=== PATIENT | female | born 1990 | race Hispanic/Latino ===

== ENCOUNTER 2017-12-06 16:10 | Inpatient (IN) | payer OTHER ==
[2017-12-06 16:59] VITALS: BMI 60.0
--- NOTE | 2017-12-06 18:33 | ULT ---
BIOPHYSICAL PROFILE 12/06/17 HISTORY: Decreased movement in a female. TECHNIQUE: Multiplanar suresh scale and color doppler images were obtained in a transabdominal limited ultra sound. FINDINGS: ESTRELLITA is 2.9 cm, which is low. A heart rate was detected at 137 beats per minute. A biophysical profile was performed. The patient scored 6 out of 8 with 0 for amniotic fluid volume. IMPRESSION: 1. Live intrauterine . 2. Oligohydramnios. 3. Biophysical profile of 6 out of 8. POS: [facility]
--- NOTE | 2017-12-06 18:48 | PDOC.LDHP ---
Labor and Delivery H&P Chief complaint: decreased movement HPI: Marta Ireland is a 27 year old female at 38.5 weeks by 6.3 wk sono, MEL of 12/15/17, who presented to L&D for decreased movement for the last day. States that she has no been feeling contractions but she has felt occasional pains over the last few days. She denies any loss of fluid, vaginal bleeding, vaginal discharge. She has no other complaints. Current gestational age (weeks): 38 (38.5) Due date: 12/15/17 Dating criteria: first trimester ultrasound (6.3 wk sono) Grav: 1 Para: 0 Current complications: other (Late to care, morbid obesity, hx of marijuana and tobacco abuse) Abnormal US findings: No Current medications: pre-matilda vitamins Social history: tobacco use (tobacco use early in ), drug use ( marijuana use in ) - Physical Exam Vital signs reviewed and normal: yes General: NAD, resting Heart: RRR Lungs: CTAB Abdomen: gravid Extremeties: no edema FHT: category 1 - OB Labs Blood type: O RH: positive Antibody Screen: negative HIV: negative RPR: negative HEPSAg: negative 1 hour GCT: negative (99) GBS: positive Urine drug screen: positive (marijuana) Rubella: immune - Assessment (1) sIUP (2) Oligohydramnios (3) Late to Care (4) Maternal marijuana and tobacco use in (5) Morbid Obesity - Plan Plan: admit to L&D, labor augmentation if indicated -: 27 year old at 38.5 wks based on 6.3 wk sono presents for decreased FM. Oligohydramnios discovered on BPP today. (1) sIUP: - Admit to L&D for induction of labor for oligohydramnios - 6 on BPP, 0 for amniotic fluid - Check amnisure - Will check cervix afterwards to decide between balloon and cytotec (2) Oligohydramnios - Denied any LOF - ESTRELLITA of 2.7 on BPP today - See above (3) GBS+ - Will start prophylatic PNC once we start induction (3) Morbid Obesity - Prepregnancy weight about 405 lb - At least a 30 lb weight gain in (4) Late to Care (5) Maternal hx of marijuana and tobacco abuse <Shaka Aaron - Last Filed: 12/06/17 21:39> <Gini Figueroa - Last Filed: 12/07/17 01:06> Allergies/Adverse Reactions: Allergies Allergy/AdvReac Type Severity Reaction Status Date / Time No Known Allergies Allergy Verified 12/06/17 17:00 Attending Addendum - Attending Addendum Date/Time: 12/06/17 1900 I personally evaluated the patient and discussed the management with Dr. Aaron I agree with the History, Examination, Assessment and Plan documented above with any addition or exceptions noted below. 27 yo female at 38.5 wks by 6.3 wk sono admitted for IOL due to oligo at term. +FM since arrival. No evidence of LOF. Amnisure negative. Will send placenta to path. Has been monitored this throughout. Reassuring status. Cat 1. Will start induction with miso. Repeat exam in 4 hours. Would like epidural for pain control when needed. ABrayMD <Gini Figueroa - Last Filed: 12/07/17 01:06>
[2017-12-06] MEDS ORDERED: Promethazine HCl 25 MG/ML VIAL IM PRN (18:58)
[2017-12-06] MEDS ORDERED: Lidocaine 1% (PF) 30 ML VIAL SC PRN (18:58)
[2017-12-06] MEDS ORDERED: NS / Oxytocin 40 units/1000ml 1,000 ML IV PRN (18:58)
[2017-12-06] MEDS ORDERED: Ibuprofen 800 MG TAB PO PRN (18:58)
[2017-12-06] MEDS ORDERED: Ondansetron HCl/PF 4 MG/2 ML Vial IVP PRN (18:58)
[2017-12-06] MEDS ORDERED: Acetaminophen 500 MG TAB PO PRN (18:58)
[2017-12-06 20:30] LABS: Amnisure Test No Membranes Rupture (No Rupture)
[2017-12-06 20:31] LABS: Amnisure Internal Control QC ACCEPTABLE (ACCEPTABLE)
[2017-12-06] MEDS ORDERED: Misoprostol 100 MCG TAB ONE (20:56)
[2017-12-06] MEDS: Lactated Ringer's 1,000 ML IV SCH (21:04)
[2017-12-06 21:23] LABS: Hemoglobin 12.6 g/dL (12.0-16.0); Mean Corpuscular HGB CONC 34.6 g/dL (32.0-36.0); Mean Corpuscular Hemoglobin 31.5 pg (27.0-31.0); Mean Platelet Volume 9.6 fL (7.4-10.4); Platelet Count 234 thou/uL (130-400); RBC Distribution Width 12.1 % (11.5-14.5); Red Blood Cell (RBC) Count 3.99 mill/uL (4.20-5.40); White Blood Cell (WBC) Count 10.7 thou/uL (4.8-10.8)
[2017-12-06] MEDS: Misoprostol 100 MCG TAB VAG SCH (21:31)
--- NOTE | 2017-12-06 21:42 | PDOC.LDPN ---
Labor & Delivery Progress Note - Subjective Subjective: comfortable - Objective Vital signs reviewed and normal: yes General: NAD, resting Uterine fundus: non tender SVE: [place] Dilation: 1.5 Effacement: 25% Station: -3 FHT: category 1 (140 baseline, mod cezar, accels present, no decels) [place] contractions every: none Procedures: cytotec placement Resuscitative measures: maternal IV fluids (maintenance LR) - Assessment (1) Intrauterine Code(s): Z34.90 - ENCNTR FOR SUPRVSN OF NORMAL , UNSP, UNSP TRIMESTER Current Visit: Yes Status: Acute (2) Oligohydramnios Code(s): O41.00X0 - OLIGOHYDRAMNIOS, UNSP TRIMESTER, NOT APPLICABLE OR UNSP Current Visit: Yes Status: Acute (3) Group B streptococcal carriage complicating Code(s): O99.820 - STREPTOCOCCUS B CARRIER STATE COMPLICATING Current Visit: Yes Status: Acute (4) Morbid obesity Code(s): E66.01 - MORBID (SEVERE) OBESITY DUE TO EXCESS CALORIES Current Visit : Yes Status: Chronic (5) Marijuana abuse Code(s): F12.10 - CANNABIS ABUSE, UNCOMPLICATED Current Visit: Yes Status: Chronic (6) Tobacco abuse Code(s): Z72.0 - TOBACCO USE Current Visit: Yes Status: Chronic (7) Late care Code(s): O09.30 - SUPRVSN OF PREG W INSUFFICIENT ANTENAT CARE, UNSP TRIMESTER Current Visit: Yes Status: Chronic Plan: continue plan of care, labor augmentation (cytotec placement at 2129) -: 27 year old F at 38.5 wks by 6.3 wk sono (1) sIUP: - induction indicated for oligohydramnios diagnosed on BPP today - Initial check @ 2124 was 1.5 / 20 / -3 - Cytotec placed at 2129 - Will reevaluate in 4 hours (2) Oligohydramnios - ESTRELLITA of 2.7 on BPP today - Normal US during this - FHTs reassuring, Cat I strip- baseline 140, mod cezar, accels present, no decels - No contractions - See above (3) GBS +: - Will start treating with PNC likely after check in 4 hours (4) Morbid obesity (5) Late to care (6) Substance abuse in , marijuana and tobacco - Pending UDS <Shaka Aaron - Last Filed: 12/06/17 21:47> Attending Addendum - Attending Addendum Date/Time: 12/07/17 0107 I personally evaluated the patient and discussed the management with Dr. Aaron I agree with the History, Examination, Assessment and Plan documented above with any addition or exceptions noted below. Miso placed without difficulty. Will hold on PCN for GBS until ROM or noted change on exam. ABrayMD <Gini Figueroa - Last Filed: 12/07/17 01:07>
[2017-12-06 22:04] LABS: Syphilis Antibody Nonreactive (Nonreactive); Syphilis Antibody Index 0.05 S/CO (<1.00 Non-Reactive)
[2017-12-06 23:05] LABS: Amphetamine Not Detected (NotDetected); Barbiturates Screen Not Detected (NotDetected); Benzodiazepine Screen Not Detected (NotDetected); Cocaine Metabolite Screen Not Detected (NotDetected); Medtox Control Line Valid? VALID (VALID); Medtox Reader # READER 1; Methadone Not Detected (NotDetected); Methamphetamine Not Detected (NotDetected); Opiate Screen Not Detected (NotDetected); Oxycodone Screen Not Detected (NotDetected); Phencyclidine (PCP) Not Detected (NotDetected); THC/Cannabinoid Screen Not Detected (NotDetected); Tricyclic Screen Not Detected (NotDetected)
[2017-12-07] MEDS: Misoprostol 100 MCG TAB VAG SCH ×3 (01:03→22:02)
[2017-12-07] MEDS: Penicillin G 2.5 MILL.units 2.5 MILL.UNITS in Premix Bag 1 BAG IVPB SCH ×6 (01:12→21:19)
[2017-12-07 01:39] LABS: HBSAg Index 0.22 S/CO (0-0.99); Hep B Surf Ag Non-Reactive S/CO (NonReactive)
--- NOTE | 2017-12-07 01:59 | PDOC.LDPN ---
Labor & Delivery Progress Note - Subjective Subjective: comfortable - Objective Vital signs reviewed and normal: yes General: NAD, resting Uterine fundus: non tender SVE: Fiona TARANGO Dilation: 1.5 Effacement: 25% Station: -2 FHT: category 1 [place] contractions every: none Procedures: 2nd cytotec - Assessment (1) Intrauterine Code(s): Z34.90 - ENCNTR FOR SUPRVSN OF NORMAL , UNSP, UNSP TRIMESTER Current Visit: Yes Status: Acute (2) Oligohydramnios Code(s): O41.00X0 - OLIGOHYDRAMNIOS, UNSP TRIMESTER, NOT APPLICABLE OR UNSP Current Visit: Yes Status: Acute (3) Group B streptococcal carriage complicating Code(s): O99.820 - STREPTOCOCCUS B CARRIER STATE COMPLICATING Current Visit: Yes Status: Acute (4) Morbid obesity Code(s): E66.01 - MORBID (SEVERE) OBESITY DUE TO EXCESS CALORIES Current Visit : Yes Status: Chronic (5) Marijuana abuse Code(s): F12.10 - CANNABIS ABUSE, UNCOMPLICATED Current Visit: Yes Status: Chronic (6) Tobacco abuse Code(s): Z72.0 - TOBACCO USE Current Visit: Yes Status: Chronic (7) Late care Code(s): O09.30 - SUPRVSN OF PREG W INSUFFICIENT ANTENAT CARE, UNSP TRIMESTER Current Visit: Yes Status: Chronic Plan: continue plan of care, labor augmentation (2nd cytotec placement at 0100) -: 27 year old F at 38.5 wks by 6.3 wk sono (1) sIUP: - induction indicated for oligohydramnios diagnosed on BPP today - Initial check @ 2124 was 1.5 / 20 / -3 - Cytotec placed at 2130 - Will reevaluate in 4 hours 2nd check at approximately 0100 was unchanged -2nd cytotec placed at that time (2) Oligohydramnios - ESTRELLITA of 2.7 on BPP today - Normal US during this - FHTs reassuring, Cat I strip- baseline 140, mod cezar, accels present, no decels - No contractions - See above (3) GBS +: - Will start treating with PNC once patient has started to progress more into latent labor (4) Morbid obesity (5) Late to care (6) Substance abuse in , marijuana and tobacco - UDA negative <Shaka Aaron - Last Filed: 12/07/17 01:59> Attending Addendum - Attending Addendum Date/Time: 12/07/17 0800 I personally evaluated the patient and discussed the management with Dr. Aaron I agree with the History, Examination, Assessment and Plan documented above with any addition or exceptions noted below. Continue current care. Will place 2nd miso. ABrayMD <Gini Figueroa - Last Filed: 12/07/17 19:46>
[2017-12-07] MEDS: Lactated Ringer's 1,000 ML IV SCH ×3 (04:05→22:01)
[2017-12-07] MEDS ORDERED: Misoprostol 100 MCG TAB VAG SCH (06:00)
--- NOTE | 2017-12-07 06:10 | PDOC.LDPN ---
Labor & Delivery Progress Note - Subjective Subjective: comfortable - Objective Vital signs reviewed and normal: yes General: NAD, resting Uterine fundus: tender to palpation SVE: Fiona TARANGO Dilation: 1.5 Effacement: 25% Station: -2 FHT: category 1 (baseline 135, mod cezar, accels present, no decels ) [place] contractions every: none - Assessment (1) Intrauterine Code(s): Z34.90 - ENCNTR FOR SUPRVSN OF NORMAL , UNSP, UNSP TRIMESTER Current Visit: Yes Status: Acute (2) Oligohydramnios Code(s): O41.00X0 - OLIGOHYDRAMNIOS, UNSP TRIMESTER, NOT APPLICABLE OR UNSP Current Visit: Yes Status: Acute (3) Group B streptococcal carriage complicating Code(s): O99.820 - STREPTOCOCCUS B CARRIER STATE COMPLICATING Current Visit: Yes Status: Acute (4) Morbid obesity Code(s): E66.01 - MORBID (SEVERE) OBESITY DUE TO EXCESS CALORIES Current Visit : Yes Status: Chronic (5) Marijuana abuse Code(s): F12.10 - CANNABIS ABUSE, UNCOMPLICATED Current Visit: Yes Status: Chronic (6) Tobacco abuse Code(s): Z72.0 - TOBACCO USE Current Visit: Yes Status: Chronic (7) Late care Code(s): O09.30 - SUPRVSN OF PREG W INSUFFICIENT ANTENAT CARE, UNSP TRIMESTER Current Visit: Yes Status: Chronic Plan: continue plan of care, labor augmentation (3rd cytotec placement) -: (1) sIUP: - induction indicated for oligohydramnios diagnosed on BPP today - Initial check @ 2124 was 1.5 / / 3 - Cytotec placed at 2130 - Will reevaluate in 4 hours 3nd check at approximately 0515 -3rd cytotec, this time 50 mg, placed at 0550 (2) Oligohydramnios - ESTRELLITA of 2.7 on BPP today - Normal US during this - FHTs reassuring, Cat I strip- baseline 140, mod cezar, accels present, no decels - No contractions - See above (3) GBS +: - Will start treating with PNC once patient has started to progress more into latent labor (4) Morbid obesity (5) Late to care (6) Substance abuse in , marijuana and tobacco - UDA negative <Galen,Shaka - Last Filed: 12/07/17 06:10> Attending Addendum - Attending Addendum Date/Time: 12/07/17 0820 I personally evaluated the patient and discussed the management with Dr. Aaron I agree with the History, Examination, Assessment and Plan documented above with any addition or exceptions noted below. Will place miso 50 mcg. Consider balloon if no change on followup exam. ABrayMD <Gini Figueroa - Last Filed: 12/07/17 19:50>
[2017-12-07] MEDS: Penicillin G Potassium 5 MILL.UNITS in Sodium Chloride 0.9% 100 ML IVPB SCH ×2 (07:07→11:35)
--- NOTE | 2017-12-07 11:00 | PDOC.LDPN ---
Labor & Delivery Progress Note - Subjective Subjective: comfortable, no concerns, other (Placement of balloon discussed with patient who agrees to proceed.) - Objective Vital signs reviewed and normal: yes General: NAD, resting Uterine fundus: non tender Dilation: 1cm Effacement: 50% Station: -2 FHT: category 1 [place] contractions every: occasional Procedures: Cook Balloon placement - Assessment (1) Intrauterine Code(s): Z34.90 - ENCNTR FOR SUPRVSN OF NORMAL , UNSP, UNSP TRIMESTER Current Visit: Yes Status: Acute (2) Oligohydramnios Code(s): O41.00X0 - OLIGOHYDRAMNIOS, UNSP TRIMESTER, NOT APPLICABLE OR UNSP Current Visit: Yes Status: Acute (3) Group B streptococcal carriage complicating Code(s): O99.820 - STREPTOCOCCUS B CARRIER STATE COMPLICATING Current Visit: Yes Status: Acute (4) Late care Code(s): O09.30 - SUPRVSN OF PREG W INSUFFICIENT ANTENAT CARE, UNSP TRIMESTER Current Visit: Yes Status: Chronic (5) Marijuana abuse Code(s): F12.10 - CANNABIS ABUSE, UNCOMPLICATED Current Visit: Yes Status: Chronic (6) Morbid obesity Code(s): E66.01 - MORBID (SEVERE) OBESITY DUE TO EXCESS CALORIES Current Visit : Yes Status: Chronic (7) Tobacco abuse Code(s): Z72.0 - TOBACCO USE Current Visit: Yes Status: Chronic -: 27 yo G1 @ 38.6 by 6.3 wk US w/: 1) SIUP -undergoing IOL for oligohydramnios -s/p cytotec placement x 3 with no cervical change -transcervical balloon placed this morning -plan to start pitocin if FHTs remain reassuring 2) Oligohydramnios -ESTRELLITA of 2.7 on admission BPP -Normal US this with FHTs and remainder of BPP reassuring 3) GBS(+) -will start PCN once labor established (4) Substance abuse in -UDS negative <Rell Calero - Last Filed: 12/07/17 11:04> Attending Addendum - Attending Addendum Date/Time: 12/07/172011 I personally evaluated the patient and discussed the management with Dr. Calero I agree with the History, Examination, Assessment and Plan documented above with any addition or exceptions noted below- IUP@ 38.5 weeks undergoing induction for oligohydramnios- Successful placement of Cooks ballloon; will start low dose of pitocin to aid with induction. Category 1 FHTs. <Bethany Downing - Last Filed: 12/07/17 20:14>
[2017-12-07] MEDS: NS w/ Oxytocin 10 units 500 ML IV SCH (11:33)
[2017-12-07] MEDS: Butorphanol Tartrate 1 MG/ML VIAL ONE ×2 (12:17→13:59)
[2017-12-07] MEDS ORDERED: Butorphanol Tartrate 1 MG/ML VIAL SLOW IVP PRN ×2 (13:55→14:21)
[2017-12-07] MEDS ORDERED: Butorphanol Tartrate 1 MG/ML VIAL ONE (13:56)
--- NOTE | 2017-12-07 15:21 | PDOC.LDPN ---
Labor & Delivery Progress Note - Subjective Subjective: comfortable (27 yo G1 @ 38.6 by 6.3 wk US ) - Objective Vital signs reviewed and normal: yes General: NAD SVE: unable to assess; balloon in place securely FHT: category 1 [place] contractions every: irregularly mahesh -: 27 yo G1 @ 38.6 by 6.3 wk US w/: 1) SIUP -undergoing IOL for oligohydramnios -s/p cytotec placement x 3 with no cervical change -transcervical balloon placed this morning -pitocin started at 1100 -balloon still securely in place and pitocin at 6 -unable to keep baby on the monitor for extended periods of time unless the pt is on her back, but she feels extreme pain on her back - @ 1430 baby was on the monitor for about 20-30 minutes showing a category 1 strip. -unable to assess dilation -continue balloon until ~2300 -continue pitocin 2) Oligohydramnios -ESTRELLITA of 2.7 on admission BPP -Normal US this with FHTs and remainder of BPP reassuring 3) GBS(+) -will start PCN once labor established (4) Substance abuse in -UDS on admission
--- NOTE | 2017-12-07 19:53 | PDOC.LDPN ---
Labor & Delivery Progress Note - Subjective Subjective: comfortable, vaginal pressure - Objective Vital signs reviewed and normal: yes General: NAD, resting Uterine fundus: non tender Dilation: 5 Effacement: 75% Station: -1 FHT: category 1 [place] contractions every: 4 minutes Procedures: AROM at 19:13, IUPC and FSE placed. AROM: clear fluid IUPC placed: yes FSE placed: yes - Assessment (1) Oligohydramnios Code(s): O41.00X0 - OLIGOHYDRAMNIOS, UNSP TRIMESTER, NOT APPLICABLE OR UNSP Current Visit: Yes Status: Acute (2) Group B streptococcal carriage complicating Code(s): O99.820 - STREPTOCOCCUS B CARRIER STATE COMPLICATING Current Visit: Yes Status: Acute (3) Morbid obesity Code(s): E66.01 - MORBID (SEVERE) OBESITY DUE TO EXCESS CALORIES Current Visit : Yes Status: Chronic Plan: continue plan of care, pitocin for augmentation -: 27 yo female at 38.6 wks by 6.3 wk sono admitted for IOL due to oligo at term. IOL for oligo: Now s/p miso x3 and Cooks balloon. Doing well. FHT cat 1. AROM at 1913 with clear fluid. Internal monitoring place. Titrate pitocin per protocol Repeat exam prn or in 2 to 4 hours. GBS pos: On PCN. Now s/p 2 doses. Morbid Obesity: Risk discussed. Rosi
[2017-12-07] MEDS: Bupivacaine 0.5% 20 ML, fentaNYL Citrate/PF 400 MCG in Sodium Chloride 0.9% 72 ML EPIDURAL SCH (21:40)
[2017-12-07] MEDS ORDERED: DISCONTINUE ALL PREVIOUS NARCOTICS FS SCH (21:45)
[2017-12-07] MEDS ORDERED: Bupivacaine 0.5% 10 ML VIAL ONE (21:48)
[2017-12-07] MEDS ORDERED: Fentanyl 100 MCG/2 ML VIAL ONE (21:48)
[2017-12-07] MEDS ORDERED: ePHEDrine/0.9% NaCl/PF SYRINGE 50 mg/10 ml SLOW IVP PRN (22:57)
[2017-12-07] MEDS ORDERED: Fentanyl 100 MCG/2 ML VIAL EPIDURAL ONE (22:57)
[2017-12-07] MEDS ORDERED: Ondansetron HCl/PF 4 MG/2 ML Vial IVP PRN (22:57)
[2017-12-07] MEDS ORDERED: Naloxone HCl 0.4 mg/ml Vial IVP PRN ×2 (22:57)
[2017-12-07] MEDS ORDERED: Eucerin (Mineral Oil/Petrolatum,White) 30 gm Jar TOP PRN (22:57)
[2017-12-07] MEDS ORDERED: Promethazine HCl 25 MG/ML VIAL IM PRN (22:57)
[2017-12-07] MEDS ORDERED: diphenhydrAMINE 50 MG/ML VIAL IVP PRN (22:57)
[2017-12-07] MEDS ORDERED: Acetaminophen 325 MG TAB PO PRN (22:57)
[2017-12-07] MEDS ORDERED: Lactated Ringer's 500 ML IV PRN (22:57)
[2017-12-07] MEDS ORDERED: Fentanyl 4mcg/Marcaine 0.1% Cassette 100 ML EPIDURAL SCH (23:00)
[2017-12-07] MEDS ORDERED: Communication Order-Pharmacy FS SCH (23:00)
--- NOTE | 2017-12-08 00:14 | PDOC.LDPN ---
Labor & Delivery Progress Note - Subjective Subjective: comfortable - Objective Vital signs reviewed and normal: yes General: NAD, resting Uterine fundus: non tender SVE: Sharron Dilation: 6 Effacement: 75% Station: -1 FHT: category 1 (120 baseline, mod cezar, accels present, no decels ) [place] contractions every: 2-3 min AROM: clear fluid (at 1914) IUPC placed: yes (1714) FSE placed: yes (1714) - Assessment (1) Intrauterine Code(s): Z34.90 - ENCNTR FOR SUPRVSN OF NORMAL , UNSP, UNSP TRIMESTER Current Visit: Yes Status: Acute (2) Oligohydramnios Code(s): O41.00X0 - OLIGOHYDRAMNIOS, UNSP TRIMESTER, NOT APPLICABLE OR UNSP Current Visit: Yes Status: Acute (3) Group B streptococcal carriage complicating Code(s): O99.820 - STREPTOCOCCUS B CARRIER STATE COMPLICATING Current Visit: Yes Status: Acute (4) Morbid obesity Code(s): E66.01 - MORBID (SEVERE) OBESITY DUE TO EXCESS CALORIES Current Visit : Yes Status: Chronic (5) Marijuana abuse Code(s): F12.10 - CANNABIS ABUSE, UNCOMPLICATED Current Visit: Yes Status: Chronic (6) Tobacco abuse Code(s): Z72.0 - TOBACCO USE Current Visit: Yes Status: Chronic (7) Late care Code(s): O09.30 - SUPRVSN OF PREG W INSUFFICIENT ANTENAT CARE, UNSP TRIMESTER Current Visit: Yes Status: Chronic Plan: continue plan of care, pitocin for augmentation (currently at 6) -: 27 yo female at 38.6 wks by 6.3 wk sono admitted for IOL due to oligo at term. IOL for oligo: Now s/p miso x3 and Cooks balloon. Doing well. FHT cat 1. AROM at 191 with clear fluid. Internal monitoring place. Titrate pitocin per protocol Repeat exam prn or in 2 to 4 hours. 2314 check was essentially unchanged. Will recheck in 2 hours. GBS pos: On PCN. Now s/p 2 doses. Morbid Obesity: Risk discussed. <Shaka Aaron - Last Filed: 12/08/17 00:12> - Assessment (1) Oligohydramnios Code(s): O41.00X0 - OLIGOHYDRAMNIOS, UNSP TRIMESTER, NOT APPLICABLE OR UNSP Current Visit: Yes Status: Acute (2) Group B streptococcal carriage complicating Code(s): O99.820 - STREPTOCOCCUS B CARRIER STATE COMPLICATING Current Visit: Yes Status: Acute (3) Morbid obesity Code(s): E66.01 - MORBID (SEVERE) OBESITY DUE TO EXCESS CALORIES Current Visit : Yes Status: Chronic <Gini Figueroa - Last Filed: 12/08/17 02:59> Attending Addendum - Attending Addendum Date/Time: 12/08/17 0257 I personally evaluated the patient and discussed the management with Dr. Aaron I agree with the History, Examination, Assessment and Plan documented above with any addition or exceptions noted below. Continue current management. Adjust pitocin as able per monitoring. Will repeat exam in 2 to 4 hours per tracing and status to help decrease risk for intraamniotic infection. Now s/p 3 PCN doses ABrayMD <Gini Figueroa - Last Filed: 12/08/17 02:59>
[2017-12-08] MEDS: Penicillin G 2.5 MILL.units 2.5 MILL.UNITS in Premix Bag 1 BAG IVPB SCH ×4 (01:02→15:49)
[2017-12-08] MEDS: Lactated Ringer's 1,000 ML IV SCH ×3 (01:26→21:26)
--- NOTE | 2017-12-08 03:03 | PDOC.LDPN ---
Labor & Delivery Progress Note - Subjective Subjective: comfortable - Objective Vital signs reviewed and normal: yes General: resting (epidural) Uterine fundus: non tender SVE: 6/75/-2 FHT: variable decelerations [place] contractions every: 5 mins Other exam findings: see comment below Procedures: FSE replaced. Resuscitative measures: maternal oxygen, maternal IV fluids, maternal position change, other (Pitocin stopped) - Assessment (1) Oligohydramnios Code(s): O41.00X0 - OLIGOHYDRAMNIOS, UNSP TRIMESTER, NOT APPLICABLE OR UNSP Current Visit: Yes Status: Acute Qualifiers: Fetus number: single or unspecified fetus (2) Group B streptococcal carriage complicating Code(s): O99.820 - STREPTOCOCCUS B CARRIER STATE COMPLICATING Current Visit: Yes Status: Acute (3) Morbid obesity Code(s): E66.01 - MORBID (SEVERE) OBESITY DUE TO EXCESS CALORIES Current Visit : Yes Status: Chronic Plan: continue plan of care, resuscitative measures -: 27 yo female at 38.6 wks by 6.3 wk sono admitted for IOL 2/2 oligo. Earlier, FSE was removed during patient position changes. Variable decels. FSE replaced. Pitocin stopped. Resuscitative measures. FHT reassuring after measures. Will hold pitocin for now until full recovery. s/p 4 doses of PCN Continue expectant management at this time. Will rest off pitocin for 1 hour. Rosi
[2017-12-08] MEDS: Bupivacaine 0.5% 20 ML, fentaNYL Citrate/PF 400 MCG in Sodium Chloride 0.9% 72 ML EPIDURAL SCH (05:52)
--- NOTE | 2017-12-08 09:01 | PDOC.LDPN ---
Labor & Delivery Progress Note - Subjective Subjective: comfortable - Objective Vital signs reviewed and normal: yes General: NAD SVE: 6/75%/-2 FHT: category 1 [place] contractions every: q4 min IUPC placed: yes FSE placed: yes -: A/P: 1) IUP@39 0/7 weeks induced for oligohydramnios. Slow labor progression- cervix unchanged since 10 pm last night. Contractions inadequate but patient has had intermittent Category 2 FHTs which has limited the titration of the pitocin. Discussed situation with patient and family with recommendation to proceed with due to arrest of active phase. Patient verbalizes understanding but desires continued trial of labor. Discussed risks of continuing with labor with patient. Continue to monitor closely and continue to discussing with patient.
[2017-12-08] MEDS ORDERED: CEFAZOLIN/Water 2 GM/20 ML SYRINGE ONE ×3 (09:55→10:13)
--- NOTE | 2017-12-08 09:55 | PDOC.EVN ---
Event Note - Event Note Event Note: Discussed case with Dr. Melton around 0900AM. Reviewed records and noted patient to have been at 6cm dilation since around 2127 last night (12/07), approximately 1 hr after AROM and IUPC placed. Patient has had intermittent periods of adequate contraction pattern overnight, but overall lack of change for >12 hrs at this point after onset of active labor indicates uterine inertia. In addition , the fetus was unable to tolerate higher rates of pitocin overnight. Given arrest of active labor, we discussed medical need for operative delivery with the patient. After some consideration, she has agreed to proceed. Per Dr. Melton's recommendations, we will give 3g of Ancef and 500mg azithromycin preoperatively, continue SCDs, and start prophylactic Lovenox dosing 12 hours , which will need to be continued x [address] Melton has agreed to scrub in and assist us if needed due to the high risk nature of this operation secondary to patient's BMI of 60. Preoperative diagnoses: 1) TIUP at 39 weeks 2) Oligohydramnios 3) Arrest of active phase of labor 4) Morbid obesity 5) Maternal history of marajuana and tobacco abuse 6) Late to care 7) GBS positive Risks, benefits, and alternatives of the procedure were explained to the patient in detail and all questions answered. Patient verbalized understanding and gave informed consent to proceed.
[2017-12-08] MEDS ORDERED: CEFAZOLIN/Water 2 GM/20 ML SYRINGE SLOW IVP SCH (10:00)
[2017-12-08] MEDS ORDERED: Azithromycin 500 MG in Sodium Chloride 0.9% 250 ML 250 ML IVPB SCH (10:00)
[2017-12-08] MEDS ORDERED: Bicitra 30 ML UDCUP PO SCH (10:00)
--- NOTE | 2017-12-08 10:10 | PDOC.APC ---
Antepartum Consult ADAM OG is a 27 year old female at 38 gestational weeks. 12/08/17 @0845 (note at 1005): Reason for eval: Dysfunctional labor, BMI 60 Requesting MD: Bethany Downing Time of first consult: This AM at approx 0845, I was briefed on the patient's care by the OB ob call , Dr Downing. Location L&D HPI: The patient is a 27 yo G1 at 38 weeks by good criteria with protracted labor. No real change past 6-7cm despite AROM, pitocin and IUPC. She qwas 6cm fits at 2130 last PM. Per ACOG, dysfunctional labor is 4 hours of no CX change after AROM and adequate MVUs or 6 hours after AROM with non-pitable pattern. This patient has had dysfunctional labor/non-pitocin responsive pattern. FHTs Class 2 to Class 1. No class 3 strips. I have reviewed the labor course and conclude that a CS is required. This patient had initially been given this recommendation and had declined a cs but has now agreed. Past med HX: neg for DM OB HX: G1 PHYSICAL: VSS Afebrile FHTS reviewed Cx per primary team: /0/cephalic/ROM Assessment: Arrest of labor at 7 cm; BMI >60 Plan: 1. Primary CS- arrest of dilation 2. Add ZMAX to prophylactic ABX 3. SCDs 4. Due to BMI 60, add low dose lovenox at 12 hours post op and continue for 2 weeks post op ([facility] Practice Bulletin "Prevention of DVT" reviewed with the residents) Labs: Ante Labs Blood Type O POSITIVE 12/06/17 21:09 Hep Bs Antigen Non-Reactive S/CO (NonReactive) 12/06/17 21:09
[2017-12-08] MEDS ORDERED: ADMIXTURE FEE CHEMO IVPB SCH (10:15)
[2017-12-08] MEDS ORDERED: SODIUM CHLORIDE 0.9% IVPB SCH (10:15)
[2017-12-08] MEDS ORDERED: CEFAZOLIN IVPB SCH (10:15)
[2017-12-08] MEDS ORDERED: Lidocaine 2% 10 ML INJ ONE ×2 (10:23→11:42)
[2017-12-08] MEDS ORDERED: Morphine PF 1 MG/ML SYR ONE (10:23)
[2017-12-08] MEDS ORDERED: Oxytocin 10 UNITS/ML VIAL ONE ×2 (10:40→12:26)
--- NOTE | 2017-12-08 11:21 | PDOC.EVN ---
Event Note - Event Note Event Note: @[id number] CS Staff assist Note I was asked by Dr Downing to scrub and be in the room as stand by anesthetic assistant. I scrubbed and was present behind the primary surgical team in the OR. I assisted with peritoneal entry and benjamin placement. Delivery and closure by primary team. I left after confirming hysterectomy hemostasis. Please see full OP note
[2017-12-08 11:37] LABS: Actual Bicarbonate (HCO3a) 27.9 mEq/L (22-26); Base Excess (BEa) 0.1 mEq/L (0 (+/-) 2.5)
[2017-12-08] MEDS ORDERED: Fentanyl 100 MCG/2 ML VIAL ONE (11:39)
[2017-12-08] MEDS ORDERED: Meperidine HCl/PF 25 MG/ML VIAL SLOW IVP PRN (12:43)
[2017-12-08] MEDS ORDERED: diphenhydrAMINE 50 MG/ML VIAL IVP PRN (12:43)
[2017-12-08] MEDS ORDERED: Eucerin (Mineral Oil/Petrolatum,White) 30 gm Jar TOP PRN (12:43)
[2017-12-08] MEDS ORDERED: Promethazine HCl 25 MG/ML VIAL IM PRN (12:43)
[2017-12-08] MEDS ORDERED: HYDROmorphone 2 MG/ML VIAL SLOW IVP PRN (12:43)
[2017-12-08] MEDS ORDERED: Naloxone HCl 0.4 mg/ml Vial IVP PRN ×2 (12:43)
[2017-12-08] MEDS ORDERED: Promethazine HCl 25 MG SUPP PR PRN (12:43)
[2017-12-08] MEDS ORDERED: Naloxone HCl 0.4 mg/ml Vial IV PRN (12:43)
[2017-12-08] MEDS ORDERED: Ondansetron HCl/PF 4 MG/2 ML Vial IVP PRN ×2 (12:43)
[2017-12-08] MEDS ORDERED: Communication Order-Pharmacy FS SCH (12:45)
[2017-12-08] MEDS ORDERED: Ketorolac Tromethamine 30 MG/ML VIAL IVP SCH (12:45)
[2017-12-08] MEDS: Ketorolac Tromethamine 30 MG/ML VIAL IVP PRN ×2 (12:55→19:20)
[2017-12-08] MEDS ORDERED: Acetaminophen 1,000 MG in Premix Bag 1 BAG IVPB SCH (13:00)
--- NOTE | 2017-12-08 13:13 | OP-2 ---
DATE OF PROCEDURE: 12/08/2017 RESIDENT SURGEON: Roger Naidu M.D. AIRLINE CAPTAIN SURGEON: Rell Calero M.D. and Dodie Esquivel M.D. ATTENDING SURGEON: Bethany Downing M.D. CONSULTING SURGEON: Joaquin Melton M.D. PROCEDURE: Primary low transverse section. PREOPERATIVE DIAGNOSES: 1. Term intrauterine , delivered. 2. Morbid obesity in mother. 3. Arrest of active phase of labor. 4. Oligohydramnios. 5. Late care. 6. Marijuana use in . 7. GBS positive status. POSTOPERATIVE DIAGNOSES: 1. Term intrauterine , delivered. 2. Morbid obesity in mother. 3. Arrest of active phase of labor. 4. Oligohydramnios. 5. Late care. 6. Marijuana use in . 7. GBS positive status. ANESTHESIA: Epidural with bolus. INDICATIONS: Ms. Ireland is a 27-year-old G1, P0 at 39.0 weeks gestation by 6.3 weeks. She presented to labor and delivery with decreased movement x1 day. She was induced for oligohydramnios. She labored for 2 days; however, failed to make some change after 12 hours. She has also had inadequate contractions as measured by intrauterine pressure catheter for 12 hours. Maternal and risk were discussed with the patient, who elected to proceed with a delivery. PROCEDURE: Informed consent was obtained after risks, benefits, and alternatives were explained. Patient received preoperative antibiotics of Ancef 3 grams and azithromycin 500 mg. She was taken to the operating room and her epidural was bolused. She was placed in the supine position with left lateral tilt. She was prepped and draped in the usual sterile fashion. A Pfannenstiel incision was made with scalpel and carried down to the level of fascia. Bleeders were controlled using Bovie cautery and chromic ties as needed. The subcutaneous fat was dissected away from the fascia. The fascia was nicked sharply and extended in the superior lateral fashion both sharply and bluntly. The superior and inferior fascial edges were elevated and dissected away freely. It was noted that the inferior fascial edge was approximately 0.5-1 cm away from the pubic symphysis at the midline. The peritoneum was entered bluntly and retracted manually. An Kristopher O retractor was then inserted. The lower uterine segment was identified and score was made along the midline of the uterus with a scalpel. The uterus was entered bluntly using the suction catheter and the hysterotomy was extended in the cranial- caudal fashion. The head was lifted manually. was easily delivered with fundal pressure at 11:08 a.m. The delayed cord clamping was utilized. The cord was then cut and clamped and cut and handed off to the waiting neonatology team. Cord gas segment was obtained as well as cord blood. The fundal massage was used to extract the placenta manually. The hysterotomy was then inspected and small extension of the left edge of the hysterotomy was found. The hysterotomy was closed using 2-0 Monocryl in the running locking fashion. An imbricating layer was then applied over the top of this with a 2-0 Monocryl in the running nonlocking fashion. Hysterotomy was noted to be hemostatic. The Kristopher O retractor was removed. The fascia was then closed using 0 PDS in the running non-locking fashion. Subcutaneous tissue was inspected and noted to be hemostatic. The subcutaneous layer was closed using a 3-0 Vicryl in three separate layers. The skin was then reapproximated using steffen. A wound VAC was applied over the top of the incision. Counts were correct x3. Patient tolerated the procedure well and went to recovery in stable condition. ESTIMATED BLOOD LOSS: 750 mL COMPLICATIONS: None. SPECIMEN: Cord gas and blood sent. Cord gas pH was 7.3 at time of delivery. Placenta was sent to pathology. FINDINGS: Grossly normal male infant with Apgars of 9 and 9 at 1 and 5 minutes respectively. DRAINS: Miranda catheter was draining clear urine before and after the procedure. Wound VAC did not have any drainage at the time the patient was taken to recovery. Dr. Downing was present for the entire procedure. Dr. Melton scrubbed out after the infant was delivered. [facility] CENTERRadha
[2017-12-08] MEDS ORDERED: Ondansetron HCl/PF 4 MG/2 ML Vial ONE (14:03)
[2017-12-08] MEDS ORDERED: Metoclopramide HCl 10 MG/2 ML VIAL ONE (14:03)
[2017-12-08] MEDS ORDERED: Adacel (T-DAP) 0.5 ML VIAL IM ONE (15:38)
[2017-12-08] MEDS ORDERED: Bisacodyl 10 MG SUPP PR PRN (15:38)
[2017-12-08] MEDS ORDERED: Methylergonovine 0.2 MG/ML VIAL IM PRN (15:38)
[2017-12-08] MEDS: NS w/ Oxytocin 10 units 500 ML IV SCH (15:49)
--- NOTE | 2017-12-08 16:44 | PDOC.OPDEL ---
OB Operative/Delivery Note Delivery Dr/Surgeon: Resident: Caden Assist: Attending: Chang Pre-Delivery Diagnosis: arrest of dilation Procedure/Post Delivery Dx: primary low transverse CS Weeks gestation: 39 Anesthesia: epidural - Findings A Sex: male Weight: 3.629 kg - 1 min: 9 - 5 min: 9 - Additional Findings/Plan Placenta delivered: manual removal findings: low transverse hysterotomy without extension Estimated blood loss: 750 Compilations/Other Findings: I was present throughout and supervised the primary LCTC/S. No complications. Prevena wound vac applied. Plan for DVT prophylaxis 1 hours after epidural removal. Post delivery plan: routine recovery
[2017-12-08] MEDS ORDERED: Sodium Chloride 0.9% 10 ML ONE (20:41)
[2017-12-08] MEDS: Simethicone Chewable 80 MG TAB PO PRN (21:26)
[2017-12-08] MEDS: Docusate Calcium (SURFAK) 240 MG CAP PO SCH (21:26)
[2017-12-08] MEDS: Misoprostol 100 MCG TAB VAG SCH ×3 (22:17→23:11)
[2017-12-09] MEDS: HYDROcodone/Acetaminophen 5/325 mg Tablet PO PRN ×5 (00:35→22:19)
[2017-12-09] MEDS ORDERED: Enoxaparin Sodium 40 MG/0.4 ML SYRINGE SC SCH (02:20)
[2017-12-09] MEDS ORDERED: Sodium Chloride 0.9% 10 ML ONE (04:55)
[2017-12-09 05:45] LABS: Mean Corpuscular HGB CONC 34.7 g/dL (32.0-36.0); Mean Corpuscular Hemoglobin 31.6 pg (27.0-31.0); Mean Platelet Volume 9.2 fL (7.4-10.4); Platelet Count 158 thou/uL (130-400); RBC Distribution Width 11.9 % (11.5-14.5); Red Blood Cell (RBC) Count 3.17 mill/uL (4.20-5.40)
--- NOTE | 2017-12-09 08:30 | PDOC.PP ---
Post Progress Note Post Day #: 1/postop day#1 Subjective: Doing well, no complaints this morning. Did require pain medication overnight. Kept down pudding last night without issues. Was able to stand up but not walk last night. About to eat breakfast this morning. PO intake tolerated: yes Flatus: yes Ambulation: no Vital Signs (12 hours) Temp Pulse Resp BP 12/09/17 08:00 98.3 F 60 20 131/77 12/09/17 05:51 20 12/09/17 04:00 97.8 F 65 20 121/57 L 12/09/17 02:00 20 12/09/17 00:15 73 18 109/57 L 12/09/17 00:00 98.0 F 79 20 12/08/17 22:00 18 Weight Weight 195.045 kg - Physical Examination General: NAD Cardiovascular: no m/r/g, RRR Respiratory: clear to auscultation bilaterally, non-labored breathing Abdominal: + bowel sounds, lochia (minimal), no distention, appropriately TTP Fundus firm & at: umbilicus Skin: CS incision dry & intact (Proveena wound vac in place), no rash Neurological: no gross focal deficits Psychiatric: A&Ox3, normal affect (euthymic) Result Diagrams: 12/09/17 05:20 Additional Labs: Post Labs Blood Type O POSITIVE 12/06/17 21:09 Hep Bs Antigen Non-Reactive S/CO (NonReactive) 12/06/17 21:09 (1) S/P primary low transverse Code(s): Z98.891 - HISTORY OF UTERINE SCAR FROM PREVIOUS SURGERY Status: Acute Comment: AM H&H stable w/ appropriate drop after surgery. VSS. Postoperative course progressing appropriately. Plan to remove baez catheter this morning and begin ambulation. Tolerating PO and passing flatus. Pain well- controlled with [place]. Excellent breast feeding and bonding with baby. Will need to discuss PP contraception prior to discharge. (2) Group B streptococcal carriage complicating Code(s): O99.820 - STREPTOCOCCUS B CARRIER STATE COMPLICATING Status : Acute Comment: Adequately treated and s/p operative delivery. Will keep both mom and baby at least 48 hours. (3) Late care Code(s): O09.30 - SUPRVSN OF PREG W INSUFFICIENT ANTENAT CARE, UNSP TRIMESTER Status: Chronic (4) Morbid obesity Code(s): E66.01 - MORBID (SEVERE) OBESITY DUE TO EXCESS CALORIES Status: Chronic Comment: Encourage lifestyle modification. (5) Marijuana abuse Code(s): F12.10 - CANNABIS ABUSE, UNCOMPLICATED Status: Chronic Comment: UDS negative. (6) Tobacco abuse Code(s): Z72.0 - TOBACCO USE Status: Chronic <Rell Calero - Last Filed: 12/09/17 08:28> Vital Signs (12 hours) Temp Pulse Resp BP 12/09/17 08:00 98.3 F 60 20 131/77 12/09/17 05:51 20 12/09/17 04:00 97.8 F 65 20 121/57 L 12/09/17 02:00 20 12/09/17 00:15 73 18 109/57 L 12/09/17 00:00 98.0 F 79 20 Weight Weight 195.045 kg Result Diagrams: 12/09/17 05:20 Additional Labs: Post Labs Blood Type O POSITIVE 12/06/17 21:09 Hep Bs Antigen Non-Reactive S/CO (NonReactive) 12/06/17 21:09 <Bethany Downing - Last Filed: 12/09/17 10:59> Attending Addendum - Attending Addendum Date/Time: 12/09/17 1057 I personally evaluated the patient and discussed the management with Dr. Calero I agree with the History, Examination, Assessment and Plan documented above with any addition or exceptions noted below- Patient without complaints. Tolerating diet. Afebrile VSS. A/P: 1) POD#1 s/p 1* C/S for arrest of active phase- continue routine post-op care. D/c baez today and begin ambulation. Continue lovenox for DVT prophylaxis. <Bethany Downing - Last Filed: 12/09/17 10:59>
[2017-12-09] MEDS: Docusate Calcium (SURFAK) 240 MG CAP PO SCH ×2 (09:23→21:33)
[2017-12-09] MEDS: Enoxaparin Sodium 40 MG/0.4 ML SYRINGE SC SCH (09:23)
[2017-12-09] MEDS: Simethicone Chewable 80 MG TAB PO PRN ×2 (09:27→21:33)
[2017-12-09] MEDS: Ibuprofen 800 MG TAB PO SCH ×2 (14:51→21:33)
[2017-12-10] MEDS: HYDROcodone/Acetaminophen 5/325 mg Tablet PO PRN ×3 (05:46→20:24)
[2017-12-10] MEDS: Ibuprofen 800 MG TAB PO SCH ×3 (05:46→21:29)
--- NOTE | 2017-12-10 08:19 | PDOC.PP ---
Post Progress Note Post Day #: postop day #2 Subjective: Doing well other than complaint of internal burning when she voids. States that she was starting to feel some discomfort that she described as "bladder spasms" even before the catheter was removed. Had an episode of urinary incontinence yesterday but has not specifically noticed increased frequency of foul smelling/ cloudy urine. She was able to tolerate walking around in the room yesterday. Had a bowel movement yesterday as well. PO intake tolerated: yes Flatus: yes Ambulation: yes Vital Signs (12 hours) Temp Pulse Resp BP BP 12/10/17 05:48 98.1 F 76 20 125/56 L 12/10/17 04:00 98.2 F 68 16 12/09/17 23:52 98.2 F 68 16 94/49 L 12/09/17 20:33 98.1 F 79 16 131/73 Weight Weight 195.045 kg - Physical Examination General: NAD Cardiovascular: no m/r/g, RRR Respiratory: clear to auscultation bilaterally, non-labored breathing Abdominal: + bowel sounds, lochia (minimal) Fundus firm & at: approximately umbilicus - difficult exam 2/2 body habitus Skin: CS incision dry & intact (Provena wound vac in place), no rash Neurological: no gross focal deficits Psychiatric: A&Ox3, normal affect (euthymic) Result Diagrams: 12/09/17 05:20 Additional Labs: Post Labs Blood Type O POSITIVE 12/06/17 21:09 Hep Bs Antigen Non-Reactive S/CO (NonReactive) 12/06/17 21:09 (1) S/P primary low transverse Code(s): Z98.891 - HISTORY OF UTERINE SCAR FROM PREVIOUS SURGERY Status: Acute Comment: Postop H&H showed appropriate drop after surgery. Vital signs unremarkable. Postoperative course progressing appropriately. Pain well- controlled. Continues to exhibit excellent breast feeding and bonding with baby. Plan to increase ambulation distance today. Discuss PP contraception prior to discharge. (2) Dysuria Code(s): R30.0 - DYSURIA Status: Acute Comment: UA and culture ordered. Will go ahead and empirically treat with amoxicillin for likely UTI pending culture results. (3) Group B streptococcal carriage complicating Code(s): O99.820 - STREPTOCOCCUS B CARRIER STATE COMPLICATING Status : Acute Comment: Adequately treated and s/p operative delivery. Will keep both mom and baby at least 48 hours. (4) Late care Code(s): O09.30 - SUPRVSN OF PREG W INSUFFICIENT ANTENAT CARE, UNSP TRIMESTER Status: Chronic (5) Morbid obesity Code(s): E66.01 - MORBID (SEVERE) OBESITY DUE TO EXCESS CALORIES Status: Chronic Comment: Encourage lifestyle modification. (6) Marijuana abuse Code(s): F12.10 - CANNABIS ABUSE, UNCOMPLICATED Status: Chronic Comment: UDS negative. (7) Tobacco abuse Code(s): Z72.0 - TOBACCO USE Status: Chronic <Rell Calero - Last Filed: 12/10/17 09:36> Vital Signs (12 hours) Temp Pulse Resp BP BP 12/10/17 05:48 98.1 F 76 20 125/56 L 12/10/17 04:00 98.2 F 68 16 12/09/17 23:52 98.2 F 68 16 94/49 L Weight Weight 195.045 kg Result Diagrams: 12/09/17 05:20 Additional Labs: Post Labs Blood Type O POSITIVE 12/06/17 21:09 Hep Bs Antigen Non-Reactive S/CO (NonReactive) 12/06/17 21:09 <Bethany Downing - Last Filed: 12/10/17 09:47> Attending Addendum - Attending Addendum Date/Time: 12/10/1744 I personally evaluated the patient and discussed the management with Dr. Calero I agree with the History, Examination, Assessment and Plan documented above with any addition or exceptions noted below- Patient c/o dyuris; symptoms present prior to delivery and beofre baez was removed. Tolerating diet. Walking in room. Afebrile VSS. A/P: 1) POD#2 s/p - continue routine care. COntinue wound vac. Encourage ambulation. 2) Dysuria- will check U/A and send urine culture; start on abx. 3) DVT prophylaxis- continue lovenox; plan to continue for 2 weeks post surgery. 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 <Bethany Downing - Last Filed: 12/10/17 09:47>
[2017-12-10] MEDS: Enoxaparin Sodium 40 MG/0.4 ML SYRINGE SC SCH (10:24)
[2017-12-10] MEDS: Docusate Calcium (SURFAK) 240 MG CAP PO SCH ×2 (10:24→21:29)
[2017-12-10] MEDS ORDERED: AMOXicillin 250 MG CAP PO SCH ×3 (10:45→21:00)
[2017-12-10 11:22] LABS: Bilirubin Negative (Negative); Blood, Urine Trace (Negative); Clarity CLEAR (Clear); Glucose, Urine (Dipstick) Negative (Negative); Leukocyte Negative (Negative); Nitrite Negative (Negative); Protein, Urine (Dipstick) Negative (Neg-Trace); Specific Gravity, Urine 1.006 (1.002-1.036); Urobilinogen 0.2 mg/dL (0.2-1.0); pH, Urine 6.5 (5.0-9.0)
[2017-12-10 11:24] LABS: Bacteria/HPF None Seen HPF (None Seen); Hyaline Casts/LPF 0-3 HYALINE CAST LPF (0-3 Hyaline); Pathc Cast-AUWi Flag 0.14 (0-2.49); RBC/HPF 0-3 HPF (0-3); Squamous Epithelial None Seen HPF (0-3); WBC/HPF None Seen HPF (0-3)
[2017-12-11] MEDS: HYDROcodone/Acetaminophen 5/325 mg Tablet PO PRN ×2 (02:24→09:33)
[2017-12-11] MEDS: Ibuprofen 800 MG TAB PO SCH ×2 (05:30→14:10)
--- NOTE | 2017-12-11 06:25 | PDOC.PP ---
Post Progress Note Post Day #: 3 Subjective: Patient doing well this AM. No significant overnight events. Patient is doing well using breast pump. She was able to give herself a lovenox injection today and feels comfortable doing so at home. She has been bonding with baby and has plans to seek more help financially upon discharge from hospital. PO intake tolerated: yes Flatus: yes Ambulation: yes Vital Signs (12 hours) Temp Pulse Resp BP 12/10/17 20:00 98.3 F 74 20 127/64 Weight Weight 195.045 kg - Physical Examination General: NAD Cardiovascular: no m/r/g, RRR Respiratory: clear to auscultation bilaterally, non-labored breathing Abdominal: + bowel sounds, lochia (wnl), no distention, appropriately TTP Extremities: negative homans (B) Skin: CS incision dry & intact, no rash Deviation from normal: wound vac in place, good suction, clean Neurological: no gross focal deficits Psychiatric: A&Ox3, normal affect Result Diagrams: 12/09/17 05:20 Additional Labs: Post Labs Blood Type O POSITIVE 12/06/17 21:09 Hep Bs Antigen Non-Reactive S/CO (NonReactive) 12/06/17 21:09 (1) S/P primary low transverse Code(s): Z98.891 - HISTORY OF UTERINE SCAR FROM PREVIOUS SURGERY Status: Acute Comment: H&H stable post-operatively. Vital signs unremarkable. Routine PP course. Pain well-controlled. Continues to exhibit excellent breast feeding and bonding with baby; utilizing breast pump. Patient has called [place] to get pump upon discharge. Patient was counseled on how to give lovenox injections. She will be giving these qd for 2 weeks. Pt counseled that wound vac is to stay in place for one week. She is to schedule an appt at [facility] on Monday12/15/17. Patient uncertain of contraception at this time. Discussed several options for which she will further discuss at clinic on monday. (2) Dysuria Code(s): R30.0 - DYSURIA Status: Acute Comment: UA and culture ordered yesterday. UA without bacteria, LE, or nitrites. Urine culture pending. Will hold off on antibiotics until urine culture results. (3) Oligohydramnios Code(s): O41.00X0 - OLIGOHYDRAMNIOS, UNSP TRIMESTER, NOT APPLICABLE OR UNSP Status: Acute QualifierTitle: Fetus number: single or unspecified fetus (4) Group B streptococcal carriage complicating Code(s): O99.820 - STREPTOCOCCUS B CARRIER STATE COMPLICATING Status : Acute Comment: Adequately treated and s/p operative delivery. (5) Late care Code(s): O09.30 - SUPRVSN OF PREG W INSUFFICIENT ANTENAT CARE, UNSP TRIMESTER Status: Chronic (6) Marijuana abuse Code(s): F12.10 - CANNABIS ABUSE, UNCOMPLICATED Status: Chronic Comment: UDS negative at last two PNC visits and during current hospitalization. (7) Morbid obesity Code(s): E66.01 - MORBID (SEVERE) OBESITY DUE TO EXCESS CALORIES Status: Chronic Comment: Encourage lifestyle modification. Patient on lovenox for DVT ppx. Recommend pt be on lovenox for DVT ppx 2 weeks PP. Pt counseled on how to give lovenox injections. - Assessment/Plan Dispo: Plan for d/c home today. Urine cultures pending. Patient will need lovenox PP for 2 weeks for DVT ppx. <Lamar Miller - Last Filed: 12/11/17 14:10> Vital Signs (12 hours) Temp Pulse Resp BP 12/11/17 07:58 98.4 F 70 20 12/11/17 07:57 98.4 F 70 20 108/53 L Weight Weight 195.045 kg Result Diagrams: 12/09/17 05:20 Additional Labs: Post Labs Blood Type O POSITIVE 12/06/17 21:09 Hep Bs Antigen Non-Reactive S/CO (NonReactive) 12/06/17 21:09 <Prince Winters - Last Filed: 12/11/17 14:32> Attending Addendum - Attending Addendum Date/Time: 12/11/17 1432 I personally evaluated the patient and discussed the management with Dr. Miller. I agree with the History, Examination, Assessment and Plan documented above with any addition or exceptions noted below. <Prince Winters - Last Filed: 12/11/17 14:32>
[2017-12-11 07:58] VITALS: BP 108/53; TEMP 98.4
[2017-12-11] MEDS: Enoxaparin Sodium 40 MG/0.4 ML SYRINGE SC SCH (09:33)
[2017-12-11] MEDS: Docusate Calcium (SURFAK) 240 MG CAP PO SCH (09:33)
[2017-12-11] MEDS ORDERED: Measles/Mumps/Rubella 10 MCG/0.5 ML VIAL SC ONE (15:00)
== END 2017-12-11 16:25 | disposition home or self-care (01) | DRG 765 ==
LOC: L&D/OP 16:10 → L&D 19:32 → 3SW 12-08 15:39
PROVIDERS: ADMIT Student in an Organized Health Care Education/Training Program; ATTEND Student in an Organized Health Care Education/Training Program
PROC: 0U7C7ZZ Dilation of Cervix, Via Natural or Artificial Opening (ICD-10-PCS; 2017-12-07)
PROC: 10D00Z1 Extraction of Products of Conception, Low, Open Approach (ICD-10-PCS; principal; 2017-12-08)
PROC: 2W13X6Z Compression of Abdominal Wall using Pressure Dressing (ICD-10-PCS; 2017-12-08)
DX: O41.03X0 Oligohydramnios, third trimester, not applicable or unspecified (principal); O99.324 Drug use complicating childbirth; Z68.44 Body mass index [BMI] 60.0-69.9, adult; O63.9 Long labor, unspecified; O36.8130 Decreased fetal movements, third trimester, not applicable or unspecified; F12.10 Cannabis abuse, uncomplicated; O99.824 Streptococcus B carrier state complicating childbirth; O34.211 Maternal care for low transverse scar from previous cesarean delivery; O99.214 Obesity complicating childbirth; E66.01 Morbid (severe) obesity due to excess calories; O62.1 Secondary uterine inertia; O90.89 Other complications of the puerperium, not elsewhere classified; R30.0 Dysuria; O99.334 Smoking (tobacco) complicating childbirth; Z3A.38 38 weeks gestation of pregnancy; Z37.0 Single live birth
CPT/HCPCS: 36415; 51702; 76819; 80306; 81001; 82805; 84112; 85027; 86780; 86850; 86900; 86901; 87086; 87340; 88307; 90707; 99285; A4216; C1726; J0131; J0456; J0595; J0690; J1650; J1885; J2274; J2405; J2540; J2590; J2765; J3010; J3490; J7050

== ENCOUNTER 2018-11-26 16:57 | Emergency (ER) | payer BC, OTHER, SELFPAY ==
[2018-11-26 17:35] LABS: #Basophils 0.1 thou/uL (0.0-0.2); #Eosinphils 0.4 thou/uL (0.0-0.7); #Lymphocytes 3.8 thou/uL (1.20-3.40); %Basophils 0.7 % (0.0-1.0); %Eosinophils 3.4 % (0.0-10.0); %Lymphocytes 30.9 % (21.0-51.0); %Monocytes 7.9 % (0.0-10.0); %Neutrophils 57.1 % (42.0-75.0); Hemoglobin 12.7 g/dL (12.0-16.0); Mean Corpuscular HGB CONC 33.1 g/dL (32.0-36.0); Mean Corpuscular Hemoglobin 28.3 pg (27.0-31.0); Mean Corpuscular Volume 85.5 fL (78.0-98.0); Mean Platelet Volume 8.8 fL (7.4-10.4); Platelet Count 250 thou/uL (130-400); RBC Distribution Width 12.6 % (11.5-14.5); Red Blood Cell (RBC) Count 4.51 mill/uL (4.20-5.40); White Blood Cell (WBC) Count 12.2 thou/uL (4.8-10.8)
[2018-11-26 17:43] LABS: Bilirubin Negative (Negative); Blood, Urine Negative (Negative); Clarity CLEAR (Clear); Glucose, Urine (Dipstick) Negative (Negative); Leukocyte Small (Negative); Nitrite Negative (Negative); Pregnancy Test - Urine (BHCG) Negative (Negative); Pregu Control Background? CLEAR/WHITE (CLR/WHITE); Pregu Control Bar Appear? YES (CONTROL BAR); Protein, Urine (Dipstick) Negative (Neg-Trace); Specific Gravity 1.025 (1.002-1.036); Specific Gravity, Urine 1.025 (1.002-1.036); Urobilinogen 0.2 mg/dL (0.2-1.0)
[2018-11-26 17:46] LABS: Bacteria/HPF 1+ HPF (None Seen); Hyaline Casts/LPF 0-3 HYALINE CAST LPF (0-3 Hyaline); Pathc Cast-AUWi Flag 0.27 (0-2.49); RBC/HPF 0-3 HPF (0-3)
[2018-11-26 17:58] LABS: ALT (SGPT) 22 U/L (8-55); AST (SGOT) 19 U/L (5-34); Albumin 3.8 g/dL (3.5-5.0); Alkaline Phosphatase 82 U/L (40-150); Anion Gap 11 mmol/L (10-20); BUN (Urea Nitrogen) 12 mg/dL (7.0-18.7); Bilirubin, Total 0.5 mg/dL (0.2-1.2); CK (CPK) 127 U/L (29-168); Calc. Creatinine Clearance 0 mL/min (70-130); Calcium 9.1 mg/dL (7.8-10.44); Carbon Dioxide 29 mmol/L (22-29); Chloride 104 mmol/L (98-107); Estimated GFR-MDRD 82; Glucose 82 mg/dL (70-105); Lipase 26 U/L (8-78); Potassium 4.3 mmol/L (3.5-5.1); Protein, Total 6.8 g/dL (6.0-8.3); Sodium 140 mmol/L (136-145)
--- NOTE | 2018-11-26 18:02 | RAD ---
RADIOGRAPH CHEST 2 VIEWS: DATE: 11/26/2018 HISTORY: 28-year-old female status post syncope, and chest pain FINDINGS: There is no airspace density, pulmonary edema, pleural effusion, pneumothorax, or cardiomegaly. IMPRESSION: No acute cardiopulmonary findings.
== END 2018-11-26 19:13 | disposition home or self-care (01) ==
LOC: ERS 16:57
DX: R55 Syncope and collapse (principal); R10.11 Right upper quadrant pain; F41.9 Anxiety disorder, unspecified; F32.9 Major depressive disorder, single episode, unspecified; F17.210 Nicotine dependence, cigarettes, uncomplicated
CPT/HCPCS: 36415; 71046; 80053; 81003; 81015; 81025; 82550; 83690; 83880; 84484; 85025; 87086; 93005

== ENCOUNTER 2019-06-20 23:09 | Emergency (ER) | payer SELFPAY, OTHER ==
[2019-06-20 23:55] LABS: #Basophils 0.1 thou/uL (0.0-0.2); #Eosinphils 0.4 thou/uL (0.0-0.7); #Lymphocytes 3.6 thou/uL (1.20-3.40); #Monocytes 0.8 thou/uL (0.11-0.59); #Neutrophils 8.2 thou/uL (1.40-6.50); %Basophils 0.4 % (0.0-1.0); %Eosinophils 3.3 % (0.0-10.0); %Lymphocytes 27.4 % (21.0-51.0); %Monocytes 6.1 % (0.0-10.0); %Neutrophils 62.7 % (42.0-75.0); Hemoglobin 12.6 g/dL (12.0-16.0); Mean Corpuscular HGB CONC 34.4 g/dL (32.0-36.0); Mean Corpuscular Hemoglobin 29.7 pg (27.0-31.0); Mean Corpuscular Volume 86.4 fL (78.0-98.0); Mean Platelet Volume 8.8 fL (7.4-10.4); Platelet Count 243 thou/uL (130-400); RBC Distribution Width 13.4 % (11.5-14.5); Red Blood Cell (RBC) Count 4.24 mill/uL (4.20-5.40); White Blood Cell (WBC) Count 13.1 thou/uL (4.8-10.8)
[2019-06-21 00:01] LABS: Bacteria/HPF None Seen HPF (None Seen); Bilirubin Negative (Negative); Blood, Urine Negative (Negative); Clarity Clear (Clear); Glucose, Urine (Dipstick) Normal (Negative); Leukocyte 25 Leu/uL (Negative); Nitrite Negative (Negative); Protein, Urine (Dipstick) Negative (Neg-Trace); RBC/HPF 0-3 HPF (0-3); Squamous Epithelial 0-3 HPF (0-3); Urobilinogen Normal mg/dL (Less than 2)
[2019-06-21 00:03] LABS: BHCG - Serum POSITIVE (NEGATIVE); Pregs Control Background? CLEAR/WHITE (CLR/WHITE); Pregs Control Bar Appear? YES (CONTROL BAR)
[2019-06-21 00:19] LABS: ALT (SGPT) 17 U/L (8-55); AST (SGOT) 16 U/L (5-34); Albumin 3.6 g/dL (3.5-5.0); Alkaline Phosphatase 70 U/L (40-110); Anion Gap 9 mmol/L (10-20); BUN (Urea Nitrogen) 14 mg/dL (7.0-18.7); Bilirubin, Total 0.5 mg/dL (0.2-1.2); Calc. Creatinine Clearance 0 mL/min (70-130); Calcium 9.1 mg/dL (7.8-10.44); Carbon Dioxide 28 mmol/L (22-29); Chloride 104 mmol/L (98-107); Estimated GFR-MDRD 89; Globulin 3.2 g/dL (2.4-3.5); Glucose 100 mg/dL (70-105); Protein, Total 6.8 g/dL (6.0-8.3); Sodium 137 mmol/L (136-145)
== END 2019-06-21 00:24 | disposition home or self-care (01) ==
LOC: ERS 23:09
DX: Z34.90 Encounter for supervision of normal pregnancy, unspecified, unspecified trimester (principal); I10 Essential (primary) hypertension; F41.9 Anxiety disorder, unspecified; F32.9 Major depressive disorder, single episode, unspecified; F17.210 Nicotine dependence, cigarettes, uncomplicated
CPT/HCPCS: 36415; 80053; 81003; 81015; 84703; 85025; 87804; 99283

== ENCOUNTER 2019-10-29 13:52 | Emergency (ER) | payer OTHER | END 2019-10-29 14:41 | disposition home or self-care (01) | LOC: ERS 13:52 | DX: J06.9 Acute upper respiratory infection, unspecified (principal); I10 Essential (primary) hypertension; Z20.828 Contact with and (suspected) exposure to other viral communicable diseases; E03.9 Hypothyroidism, unspecified; F41.9 Anxiety disorder, unspecified; F32.9 Major depressive disorder, single episode, unspecified; F17.210 Nicotine dependence, cigarettes, uncomplicated; Z79.899 Other long term (current) drug therapy | CPT/HCPCS: 87081; 87430; 87635; 87804; 99283; U0002 ==

== ENCOUNTER 2019-12-03 16:58 | Day surgery (SDC) | payer OTHER ==
[2019-12-03 17:55] VITALS: BMI 68.2
[2019-12-03 18:08] VITALS: BP 142/72; TEMP 98.7
[2019-12-03] MEDS ORDERED: hydrALAZINE 20 MG/ML VIAL SLOW IVP PRN (19:12)
[2019-12-03 19:40] LABS: #Basophils 0.1 thou/uL (0.0-0.2); #Eosinphils 0.2 thou/uL (0.0-0.7); #Lymphocytes 2.7 thou/uL (1.20-3.40); #Monocytes 0.6 thou/uL (0.11-0.59); #Neutrophils 10.5 thou/uL (1.40-6.50); %Basophils 0.4 % (0.0-1.0); %Eosinophils 1.5 % (0.0-10.0); %Monocytes 4.5 % (0.0-10.0); %Neutrophils 74.6 % (42.0-75.0); Mean Corpuscular HGB CONC 33.6 g/dL (32.0-36.0); Mean Corpuscular Hemoglobin 29.6 pg (27.0-31.0); Mean Corpuscular Volume 88.2 fL (78.0-98.0); Mean Platelet Volume 8.8 fL (7.4-10.4); Platelet Count 255 thou/uL (130-400); RBC Distribution Width 13.1 % (11.5-14.5); Red Blood Cell (RBC) Count 4.06 mill/uL (4.20-5.40); White Blood Cell (WBC) Count 14.1 thou/uL (4.8-10.8)
[2019-12-03 19:51] LABS: Creatinine, Urine 238.44 mg/dL (47-110)
[2019-12-03 20:00] LABS: ALT (SGPT) 19 U/L (8-55); AST (SGOT) 15 U/L (5-34); Albumin 3.2 g/dL (3.5-5.0); Alkaline Phosphatase 83 U/L (40-110); Anion Gap 12 mmol/L (10-20); BUN (Urea Nitrogen) 11 mg/dL (7.0-18.7); Bilirubin, Total 0.4 mg/dL (0.2-1.2); Calc. Creatinine Clearance 386 mL/min (70-130); Calcium 8.8 mg/dL (7.8-10.44); Carbon Dioxide 24 mmol/L (22-29); Chloride 105 mmol/L (98-107); Estimated GFR-MDRD Greater than 90; Globulin 3.5 g/dL (2.4-3.5); Glucose 99 mg/dL (70-105); Potassium 3.9 mmol/L (3.5-5.1); Protein, Total 6.7 g/dL (6.0-8.3); Sodium 137 mmol/L (136-145)
--- NOTE | 2019-12-03 20:20 | PDOC.FPROB ---
FMR OB H&P: HPI - History of Present Illness Chief Complaint: elevated BP Indentification: 29yo @ 32.1 by LMP c/w 13.2wk sono History of Present Illness: 29yo @ 32.1 by LMP c/w 13.2wk sono presents from [facility] clinic for elevated BP. Patient undergoing antepartum testing for maternal obesity, had mBPP NST 4/4 in clinic however had 2 elevated BPs of 159/69 and 147/73 and thus was sent to L&D for PreE workup. Patient states she chronically as vision floaters but no scotomas or vision changes. She also states she has chronic RUQ pain 2/2 adolfo prior to but no changes to pain. Denies any CP, SOB, LE edema, cough, congestion. She endorses good movement, no vaginal bleeding or LOF or change in vaginal discharge. Denies ctx. Primary Care Physician: LAUREL Ferrera FMR OB H&P: Current - Care : 2 Para: 1001 Gestational age: 32.1 Due date: 01/27/20 Dating Criteria: LMP c/w 13.2wk sono - OB Labs Blood type: O RH: positive Antibody Screen: negative HIV: negative RPR: negative HepBsAg: negative Rubella: immune Gonorrhea: negative Chlamydia: positive (07/23/19, RANGEL on 09/05/19 and 10/17/19 negative) Pap Smear: NILM 1 hour gtt: 82 A1c: 5.2 H&H: 11.8 Platelets: 242 Additional labs: TSH 7.8, T3 3.5, TPO neg, T4 0.87. 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 Denies tob or EtOH use. Previously homeless however now has apartment. - Family History Family History: Mother DM, HTN Father HTN and penial cancer Aunt schizophrenia FMR OB H&P: Medications - Current Home Medications: Medication Instructions Recorded Confirmed Type Vit No.129/Iron/Folic 1 each PO DAILY 12/06/17 12/03/19 History [ One Daily Tablet] Aspirin Chewable 81 mg PO DAILY 12/03/19 12/03/19 History Levothyroxine Sodium [Tirosint] 150 mcg PO DAILY 12/03/19 12/03/19 History Allergies/Adverse Reactions: Allergies Allergy/AdvReac Type Severity Reaction Status Date / Time No Known Allergies Allergy Verified 12/03/19 17:52 FMR OB H&P: ROS - Review of Systems General: denies: fever/chills, weight/appetite/sleep changes, night sweats, fatigue Eyes: reports: floaters (chronic). denies: vision changes, double vision, scotomas ENT: denies: nasal congestion, rhinorrhea Cardiovascular: denies: chest pain, palpitation Respiratory: denies: cough, congestion, shortness of breath Gastrointestinal: denies: abdominal pain, nausea, vomiting, diarrhea, constipation Genitourinary (Female): denies: dysuria, vaginal discharge, vaginal pain, vaginal bleeding, contractions Musculoskeletal: denies: pain Neurologic: denies: numbness, headache Integumentary: denies: itching, rash FMR OB H&P: Vital Signs - Maternal Vital signs: Vital Signs - First Documented Temp Pulse Resp BP Pulse Ox 98.7 F 82 20 142/72 H 97 12/03/19 17:09 12/03/19 17:09 12/03/19 17:09 12/03/19 17:09 12/03/19 17:09 - Heart Tones Baseline: 140 (unable to obtain FHT 2/2 body habitus. FHR 140 on doppler.) FMR OB H&P: Physical Exam - Physical Exam General: NAD, awake, alert and oriented, other (morbidly obese) HEENT: normocephalic and atraumatic, MMM, grossly normal vision, grossly normal hearing Neck: supple, trachea midline Heart: RRR, normal S1/S2, no murmurs/rubs/gallops, pulses present, no edema General: CTAB, no respiratory distress, good air movement, no rales/rhonchi, no wheezing Abdomen: soft, gravid, non-tender, bowel sound present Musculoskeletal: FROM in all four extremities Neurological: no focal deficit Skin: no rash Psychiatric: intact recent and remote memory, good judgement and insight, normal mood and affect FMR OB H&P: Results - Labs Lab results: Laboratory Results - last 24 hr 12/03/19 12/03/19 12/03/19 19:00 19:34 19:34 WBC 14.1 H RBC 4.06 L Hgb 12.0 Hct 35.8 L MCV 88.2 MCH 29.6 MCHC 33.6 RDW 13.1 Plt Count 255 MPV 8.8 Neutrophils % 74.6 Lymphocytes % 19.0 L Monocytes % 4.5 Eosinophils % 1.5 Basophils % 0.4 Neutrophils # 10.5 H Lymphocytes # 2.7 Monocytes # 0.6 H Eosinophils # 0.2 Basophils # 0.1 Sodium 137 Potassium 3.9 Chloride 105 Carbon Dioxide 24 Anion Gap 12 BUN 11 Creatinine 0.76 Estimated GFR (MDRD) Greater than 90 Glucose 99 Calcium 8.8 Total Bilirubin 0.4 AST 15 ALT 19 Alkaline Phosphatase 83 Serum Total Protein 6.7 Albumin 3.2 L Globulin 3.5 Albumin/Globulin Ratio 0.9 L U Random Total Protein 12 Urine Creatinine 238.44 H FMR OB H&P: A/P - Problem List (1) Gestational hypertension Status: Acute Code(s): O13.9 - GESTATIONAL HTN W/O SIGNIFICANT PROTEINURIA, UNSP TRIMESTER Qualifiers: Trimester: third trimester Qualified Code(s): O13.3 - Gestational [ -induced] hypertension without significant proteinuria, third trimester (2) Status: Acute Qualifiers: Weeks of gestation: 32 weeks Qualified Code(s): Z3A.32 - 32 weeks gestation of (3) Morbid obesity Status: Chronic Code(s): E66.01 - MORBID (SEVERE) OBESITY DUE TO EXCESS CALORIES Disposition: 29yo @ 32.1 by LMP c/w 13.2wk jonathan who presents for elevated BP and PreE workup #Elevated BP - newly diagnosed gHTN - BP 159/69 and 147/73 in clinic, sent to L&D triage for PreE workup - h/o HTN at age 19 - CBC, CMP order and WNL. Urine Pr/Cr 0.05 - no s/s of severe features - Unable to obtain NST 2/2 body habitus - BPP obtained and 02/14 - Serial BP's obtained - multiple 140s/150s/80s. Two severe range pressures obtained (164/79 and 169/81) however patient was talking on phone with arm bent during reading and thus not reliable values - Based on readings from clinic and in L&D, patient now with newly diagnosed gHTN - Gave gHTN return precautions and discussed alarm sxs. Pt already with testing, will cont along with f/u with PNC as indicated. Pt voiced understanding and agreement of plan, all questions answered - encourage TID at home BP monitoring to bring log to all appointments - cont to follow with MFM as directed - cont ASA #h/o Chlamydia - positive early in , RANGEL negative #FHx of Spinal bifida - MFM 1st trimester screen negative #h/o LTCS - baby currently breech. Anticipate repeat C/S #Hypothyroidism - CCM and follow with PCP PCP: [facility] - [facility] Dispo: Negative PreE workup, newly diagnosed gHTN, no severe features. Given return/labor precautions. Home BP monitoring. Cont testing and follow up with PNC as previously directed. Discussion: Date/Time: 12/03/192019 This H&P was discussed with Dr. Hanson and Dr. Winters who agree with the above documentation and plan. Addendum - Attending - Attending Attestation Date/Time: 12/04/19 7011 I personally evaluated the patient and discussed the management with Dr. Oliveira last night. I agree with the History, Examination, Assessment and Plan documented above with any addition or exceptions noted below.
--- NOTE | 2019-12-04 08:13 | ULT ---
BIOPHYSICAL PROFILE: DATE: 12/03/2019. HISTORY: A 29-year-old female with elevated blood pressure. TECHNIQUE: Multiplanar, suresh scale, sonographic imaging of the gravid uterus obtained. FINDINGS: The apparatus operator reports a 2 out of 2 score for tone, breathing, movement, and amnio tic fluid. The amniotic fluid index is 16.6 cm. Placenta is located anteriorly with no evidence for previa or abruption. Single intrauterine gestati on demonstrates a vertex presentation and a heart rate of 141 b.p.m. IMPRESSION: An 8 out of 8 biophysical profile score. POS: [facility]
== END 2019-12-03 22:23 | disposition home or self-care (01) ==
LOC: L&D/OP 16:58
DX: O13.3 Gestational [pregnancy-induced] hypertension without significant proteinuria, third trimester (principal); O99.283 Endocrine, nutritional and metabolic diseases complicating pregnancy, third trimester; E03.9 Hypothyroidism, unspecified; O99.213 Obesity complicating pregnancy, third trimester; E66.01 Morbid (severe) obesity due to excess calories; O34.211 Maternal care for low transverse scar from previous cesarean delivery; Z3A.32 32 weeks gestation of pregnancy; Z79.82 Long term (current) use of aspirin; Z79.899 Other long term (current) drug therapy
CPT/HCPCS: 36415; 76819; 80053; 82570; 84156; 85025; 99282

== ENCOUNTER 2020-01-06 10:15 | Outpatient (CLI) | payer OTHER ==
[2020-01-07 12:20] LABS: SARS-CoV-2 MS2 Positive; SARS-CoV-2 N Gene Negative; SARS-CoV-2 S Gene Negative; SARS-CoV-2 orf1ab Negative
== END 2020-01-06 10:16 | disposition home or self-care (01) ==
LOC: SCSLAB 10:15
PROVIDERS: ATTEND Student in an Organized Health Care Education/Training Program
DX: Z01.812 Encounter for preprocedural laboratory examination (principal); Z11.59 Encounter for screening for other viral diseases
CPT/HCPCS: 87635; U0003

== ENCOUNTER 2020-01-09 04:53 | Inpatient (IN) | payer OTHER ==
[2020-01-09 05:49] VITALS: BMI 69.7
[2020-01-09] MEDS ORDERED: Butorphanol Tartrate 1 MG/ML VIAL SLOW IVP PRN (06:16)
[2020-01-09] MEDS ORDERED: Ondansetron PF 4 MG/2 ML Vial IVP PRN ×2 (06:16→10:44)
[2020-01-09] MEDS ORDERED: Docusate 100 MG CAP PO PRN (06:16)
[2020-01-09] MEDS ORDERED: Acetaminophen 500 MG TAB PO PRN (06:16)
[2020-01-09] MEDS ORDERED: hydrALAZINE 20 MG/ML VIAL SLOW IVP PRN ×2 (06:16→10:55)
[2020-01-09] MEDS ORDERED: Promethazine HCl 25 MG/ML VIAL IM PRN ×2 (06:16→10:44)
[2020-01-09] MEDS ORDERED: Meperidine HCl/PF 25 MG/ML VIAL IM/IV PRN (06:16)
--- NOTE | 2020-01-09 06:26 | PDOC.FPROB ---
FMR OB H&P: HPI - History of Present Illness Chief Complaint: elective c section History of Present Illness: Pt is a 29 yo at 37-3/7 wga by 12 week U/S with MEL of 01/27/2020 who presents for elective repeat c section. GBS negative. Patient is doing well today and denies any contractions, vaginal bleeding or gush of fluid. Patient endorses good movement. Denies PEREZ, SOB, chest pain, abdominal pain, changes in vision. FMR OB H&P: Current - Care : 2 Para: 1 Gestational age: 37-3/7 wga Due date: 01/27/2020 Dating Criteria: 12 week U/S - OB Labs Blood type: O RH: positive Antibody Screen: negative HIV: negative RPR: negative HepBsAg: negative Rubella: immune Gonorrhea: negative Chlamydia: negative (patient was positive for chlamydia in July 2019 with a positive RANGEL in October.) Pap Smear: negative A1c: 5.2 FMR OB H&P: History - Past Medical History PMH: gHTN, hypothyroidism history of pre diabetes, PCOS, and essential HTN that patient says resolved when she was 19 - OB History OB History: Previous LTCS x1 - CORONARY CLINICAL SPECIALIST History CORONARY CLINICAL SPECIALIST History: Menarche at age 14 Hx of PCOS and irregular periods - Surgical History Sx History: Cholecystectomy C Section - Social History Social History: Marijuana use in May - Family History Family History: mom- DM, HTN dad- HTN FMR OB H&P: Medications - Current Home Medications: Medication Instructions Recorded Confirmed Type Vit No.129/Iron/Folic 1 each PO DAILY 12/06/17 01/09/20 History [ One Daily Tablet] Aspirin Chewable 81 mg PO DAILY 12/03/19 01/09/20 History Levothyroxine Sodium [Tirosint] 150 mcg PO DAILY 12/03/19 01/09/20 History Allergies/Adverse Reactions: Allergies Allergy/AdvReac Type Severity Reaction Status Date / Time No Known Allergies Allergy Verified 01/09/20 05:40 FMR OB H&P: ROS - Review of Systems General: denies: fever/chills, fatigue Eyes: denies: vision changes, scotomas Cardiovascular: denies: chest pain, palpitation, edema Respiratory: denies: cough, congestion, shortness of breath Gastrointestinal: denies: abdominal pain, cramping, nausea, vomiting, diarrhea, constipation Genitourinary (Female): denies: dysuria, polyuria, vaginal discharge, vaginal bleeding, contractions, vaginal pressure Musculoskeletal: denies: pain, swelling Neurologic: denies: syncope, weakness, headache Integumentary: denies: rash, lesions Psychological: denies: depression, anxiety FMR OB H&P: Vital Signs - Maternal Vital signs: BP 120/74 HR 83 RR 22 T 97.9 - Heart Tones Baseline: 140 (unable to get good tracing due to body habitus) FMR OB H&P: Physical Exam - Physical Exam General: NAD, awake, alert and oriented HEENT: normocephalic and atraumatic, EOMI Neck: supple, trachea midline Chest: non-tender to palpation Heart: RRR, normal S1/S2, no murmurs/rubs/gallops General: CTAB, no respiratory distress, good air movement, no wheezing Abdomen: soft, gravid Musculoskeletal: pulses present Neurological: cranial nerves II through XII intact Skin: no rash, good tugor Psychiatric: intact recent and remote memory, good judgement and insight FMR OB H&P: A/P - Problem List (1) Current Visit: No Status: Chronic Qualifiers: Weeks of gestation: 37 weeks Qualified Code(s): Z3A.37 - 37 weeks gestation of (2) Late care Current Visit: No Status: Chronic Code(s): O09.30 - SUPRVSN OF PREG W INSUFFICIENT ANTENAT CARE, UNSP TRIMESTER (3) Marijuana abuse Current Visit: No Status: Chronic Code(s): F12.10 - CANNABIS ABUSE, UNCOMPLICATED Comment: UDS negative at last two C visits and during current hospitalization. (4) Morbid obesity Current Visit: No Status: Chronic Code(s): E66.01 - MORBID (SEVERE) OBESITY DUE TO EXCESS CALORIES (5) Gestational hypertension Current Visit: No Status: Acute Code(s): O13.9 - GESTATIONAL HTN W/O SIGNIFICANT PROTEINURIA, UNSP TRIMESTER Qualifiers: Trimester: third trimester Qualified Code(s): O13.3 - Gestational [ -induced] hypertension without significant proteinuria, third trimester Disposition: 1. Term - at 37-3/7wga by 12 weeks U/S with MEL of 01/27/2020 -Elective repeat c section -GBS negative -marijuana use in -complicated by gHTN and morbid obesity 2. gHTN -BPs have been controlled -not on home medication 3. Hypothyroidism -on home Levothyroxine Discussion: Date/Time: 01/09/20 0624 This H&P was discussed with [] and [] who agree with the above documentation and plan. Addendum - Attending - Attending Attestation Date/Time: 01/09/20 1118 I personally evaluated the patient and discussed the management with Dr. Callaway. I agree with the History, Examination, Assessment and Plan documented above with any addition or exceptions noted below. Presented for rLTCS at 37.4 wk per MFM recommendations. R/B/A discussed agreed to proceed.
[2020-01-09] MEDS ORDERED: Lactated Ringer's 1,000 ML IV SCH (06:30)
[2020-01-09] MEDS ORDERED: CEFAZOLIN 2 GM in Premix Bag 1 BAG IVPB SCH (06:30)
[2020-01-09] MEDS ORDERED: Bicitra 30 ML UDCUP PO SCH (06:30)
[2020-01-09 06:37] LABS: Hemoglobin 11.9 g/dL (12.0-16.0); Mean Corpuscular HGB CONC 33.9 g/dL (32.0-36.0); Mean Corpuscular Hemoglobin 29.3 pg (27.0-31.0); Mean Corpuscular Volume 86.6 fL (78.0-98.0); Mean Platelet Volume 9.6 fL (7.4-10.4); Platelet Count 245 thou/uL (130-400); RBC Distribution Width 13.3 % (11.5-14.5); Red Blood Cell (RBC) Count 4.06 mill/uL (4.20-5.40); White Blood Cell (WBC) Count 12.4 thou/uL (4.8-10.8)
[2020-01-09] MEDS ORDERED: CEFAZOLIN 3 GM in Sodium Chloride 0.9% 100 ML IVPB SCH (07:15)
[2020-01-09 07:21] LABS: Syphilis Antibody Nonreactive (Nonreactive); Syphilis Antibody Index 0.04 S/CO (<1.00 Non-Reactive)
[2020-01-09 07:22] LABS: HBSAg Index 0.14 S/CO (0-0.99); Hep B Surf Ag Non-Reactive S/CO (NonReactive)
[2020-01-09] MEDS ORDERED: Ondansetron PF 4 MG/2 ML Vial ONE (07:53)
[2020-01-09] MEDS ORDERED: MORPHINE 5 MG/10 ML PF VIAL ONE (07:53)
[2020-01-09] MEDS ORDERED: Oxytocin 10 UNITS/ML VIAL ONE ×3 (07:53→10:09)
[2020-01-09] MEDS ORDERED: PHENYLEPHRINE-NS 100 MCG/ML 10 ML SYRINGE ONE (07:53)
[2020-01-09] MEDS ORDERED: EPHEDRINE 25 MG/5 ML SYRINGE ONE ×2 (07:53→08:40)
[2020-01-09] MEDS ORDERED: Ketamine 50 MG/ML (10ML VIAL) ONE (08:49)
[2020-01-09] MEDS ORDERED: Midazolam HCl 2 mg/2 ml Vial ONE ×2 (08:49→09:41)
[2020-01-09] MEDS ORDERED: Non-Formulary Item 1 EACH (Prenatal Vit No.129/Iron/Folic [Prenatal One Daily Tablet] 1 E PO SCH (09:00)
[2020-01-09] MEDS ORDERED: LEVOTHYROXINE SODIUM 150 MCG PO SCH (09:00)
[2020-01-09] MEDS ORDERED: Aspirin Chewable 81 MG TAB PO SCH (09:00)
[2020-01-09] MEDS ORDERED: Ketorolac Tromethamine 30 MG/ML VIAL ONE (09:23)
[2020-01-09] MEDS ORDERED: Fentanyl 100 MCG/2 ML VIAL ONE ×4 (09:27→10:16)
[2020-01-09] MEDS ORDERED: Tranexamic Acid 1,000 MG/10 ML VIAL ONE (10:03)
[2020-01-09] MEDS ORDERED: diphenhydrAMINE 50 MG/ML VIAL ONE (10:38)
[2020-01-09] MEDS ORDERED: Promethazine HCl 25 MG SUPP PR PRN (10:44)
[2020-01-09] MEDS ORDERED: HYDROmorphone 2 MG/ML VIAL SLOW IVP PRN (10:44)
[2020-01-09] MEDS ORDERED: Ketorolac Tromethamine 30 MG/ML VIAL IVP PRN (10:44)
[2020-01-09] MEDS ORDERED: Meperidine HCl/PF 25 MG/ML VIAL SLOW IVP PRN (10:44)
[2020-01-09] MEDS ORDERED: Ondansetron HCl/PF 4 MG/2 ML Vial IVP PRN (10:44)
[2020-01-09] MEDS ORDERED: Naloxone HCl 0.4 mg/ml Vial IVP PRN ×2 (10:44)
[2020-01-09] MEDS ORDERED: L&D-Morphine 4 MG/ML VIAL SLOW IVP PRN (10:44)
[2020-01-09] MEDS ORDERED: Naloxone HCl 0.4 mg/ml Vial IV PRN (10:44)
[2020-01-09] MEDS ORDERED: diphenhydrAMINE 50 MG/ML VIAL IVP PRN (10:44)
[2020-01-09] MEDS ORDERED: Ketorolac Tromethamine 30 MG/ML VIAL IVP SCH (10:45)
[2020-01-09] MEDS ORDERED: Communication Order-Pharmacy FS SCH (10:45)
[2020-01-09] MEDS ORDERED: Lanolin Ointment 7 GM TUBE TOP PRN (10:55)
[2020-01-09] MEDS ORDERED: HYDROcodone/Acetaminophen 5/325 mg Tablet PO PRN ×3 (10:55→23:00)
[2020-01-09] MEDS ORDERED: Acetaminophen 325 MG TAB PO PRN (10:55)
--- NOTE | 2020-01-09 11:27 | PDOC.OPDEL ---
OB Operative/Delivery Note Delivery Dr/Surgeon: Elysia/Houston/Roxanne Pre-Delivery Diagnosis: scheduled section Anesthesia: spinal - Additional Findings/Plan Placenta delivered: manual removal findings: low transverse hysterotomy without extension, normal tubes, normal ovaries Estimated blood loss: 1140 Compilations/Other Findings: See dictation for details. Post delivery plan: routine recovery (start lovenox 40 mg SC BID 12 hr post delivery.)
--- NOTE | 2020-01-09 14:59 | PDOC.BPN ---
- Brief Progress Note 4hr Post Note: S: Doing well, no concerns. No n/v, tolerating liquid diet. Minimal pain. Lochia moderate. No CP, SOB, fever/chills. Mild pruritus, improved with benadryl. Desires IUD for contraception. Plans to f/u with [facility] for pediatric and chronic care herself. O: Selected Entries 01/09/20 01/09/20 13:15 14:15 Temperature 98.2 F Pulse Rate 72 Blood Pressure 129/60 127/58 L [Semi-Fowlers] Respiratory 19 Rate O2 Sat by Pulse 97 Oximetry Oxygen Delivery Room Air Method General: Resting comfortably, NAD, A/O x3, obese HEENT: MMM, neck supple Pulm: CTAB Cardio: RRR without murmurs /GI: Soft, appropriately TTP, uterus firm near umbilicus. No rebound or guarding. Wound vac in place. Baez in place, yellow urine, >30cc/hr. Incision c /d/i with wound vac in place. A/P: 29 yo at 37.3 by 12 week U/S who presented for rLTCS. #Term SIUP, PPD#0 -s/p rLTCS - hemorrhage with QBL >1000cc -GBS negative -marijuana use in -complicated by gHTN and morbid obesity -Will check H/H in AM -Start Lovenox 40mg BID 12 hours post-op with Xa level 4 hours post first dose - high risk for DVT with morbid obesity, , and post c/s -UOP > 30cc/hr, clear yellow urine, incision c/d/i with wound vac -will remove baez within 12 hours post-op, encourage PO intake, routine PP care -Desires IUD for contraception PP #gHTN -BPs have been controlled -not on home medication -cont to monitor #Hypothyroidism - cont Levothyroxine Diet: Full liquid to adv as tolerated VTE: Lovenox IVF: LR @ 125cc/hr PCP: LAUREL Ferrera Dispo: Cont routine PP care. VTE pharm ppx starting 12 hours post-op.
[2020-01-09] MEDS: Prenatal Vitamin 1 TAB PO SCH (15:17)
[2020-01-09] MEDS: Ibuprofen 800 MG TAB PO SCH ×2 (15:17→21:38)
--- NOTE | 2020-01-09 15:32 | OP ---
DATE OF PROCEDURE: 01/09/2020 PRIMARY SURGEON: Roger Naidu MD ASSISTING SURGEONS: Anderson Conrad MD; Eric Oliveira MD CONSULTING SURGEON: Jamie Webb MD PROCEDURE PERFORMED: Repeat low-transverse section. PREPROCEDURE DIAGNOSES: 1. Term intrauterine at 37 weeks and 4 days. 2. History of previous section for arrest of dilation. 3. Super morbid obesity. 4. Marijuana use. 5. Gestational hypertension. 6. Hypothyroidism. 7. History of prediabetes. 8. History of polycystic ovary syndrome. POSTPROCEDURE DIAGNOSES: 1. Term intrauterine at 37 weeks and 4 days, delivered. 2. hemorrhage. 3. History of previous section for arrest of dilation. 4. Super morbid obesity. 5. Marijuana use. 6. Gestational hypertension. 7. Hypothyroidism. 8. History of prediabetes. 9. History of polycystic ovary syndrome. ANESTHESIA: Spinal with additional IV medication for pain management. QUANTITATIVE BLOOD LOSS: 1140 mL. DRAINS: None. INDICATIONS FOR PROCEDURE: Ms. Ireland is a 29-year-old 2, para 1, at 37 weeks and 4 days, dated by a 12-week ultrasound with an EDC of 01/27/2020, who presented for medically indicated repeat due to gestational hypertension, prior x1, and super morbid obesity. After risks, benefits, and alternatives were discussed with the patient, she agreed to proceed with repeat section. PROCEDURE IN DETAIL: The patient provided consent after risks, benefits, and alternatives were discussed. She was taken to the operating room and Ancef 3 g IV was administered prophylactically. She was placed in supine position and prepped and draped in the usual sterile fashion. A Pfannenstiel incision was made approximately 4 cm inferior to her umbilicus. This was carried down to the level of the fascia. Subcutaneous fat was dissected away from the fascia and the fascia was nicked with a scalpel on both sides. The rectus muscle was dissected underneath the fascia and the fascial incision was extended using the scalpel bilaterally. It was noted that there was omentum adhesed to the fascia in the midline, but it was noted to be free of bowel and was bluntly dissected away. The peritoneum was entered in the midline and the bladder was identified underneath the lower edge of the fascia. The rectus muscle and peritoneum were retracted manually. An Kristopher O retractor was placed into the abdomen, providing optimal visualization of the lower uterine segment. At this point, Dr. Webb was asked to come into the operating room and inspect the positioning of the Kristopher O and the abdominal incision. He felt that the space created was sufficient for delivery of the and repair of the hysterotomy. A low transverse score was made with a clean scalpel and carried down to the midline. The uterus was entered digitally and the hysterotomy was extended manually in the caudocranial fashion. Clear fluid was noted at this time. The 's head was elevated to the level of the hysterotomy and engaged using fundal pressure. A vacuum was then placed over the flexion point, brought to the appropriate pressure, and the infant was delivered easily through the hysterotomy with one pull and no pop offs. Total vacuum time was less than 30 seconds. The remainder of the infant was delivered without difficulty. The cord was cut and clamped, and the was taken to the warmer, where the resuscitative team was awaiting. Cord blood was then collected and sent for analysis. The placenta was then manually extracted. The uterus was left in the abdomen and curetted x2 with a dry laparotomy sponge. The apices and inferior and superior edges of the uterus were clearly identified and the hysterotomy was closed using #1 running locking Monocryl. One [id number] stitch using 1 monocryl was applied in the midline of the hysterotomy to control hemostasis. The apices were then inspected and noted to be hemostatic. As a measure of excess caution in this patient, FloSeal was applied along the length of the hysterotomy per the standard protocol to further assure hemostasis. The hysterotomy was inspected one final time and the Kristopher O retractor was removed. The peritoneum was not identifiable due to the patient's overlying body habitus and as such was not able to be closed. Superior and inferior edges of the fascia were identified, and the rectus muscles were inspected. There was bleeding noted to be coming from the formally adhesed omentum in the midline and both edges of the rectus muscles bilaterally. This was addressed with Bovie cautery, Tri powder, and Surgicel underneath the apices of the fascia. Appropriate hemostasis was achieved of the rectus muscles and fascia, and the fascia was closed using a nonlocking 0 PDS stitch in usual fashion. A fish retractor was placed in the midline to retract the underlying bowel and was removed without difficulty prior to closure of the fascia. The fascial incision was inspected one final time and noted to be all inclusive of the incision. The subcutaneous tissues were then irrigated with sterile saline and all bleeding vessels were cauterized with the Bovie. The subcutaneous space was then closed using 3 running nonlocking #2 plain gut stitches in 3 separate layers. The skin was then reapproximated with steffen and a SRIDEVI wound healing system was placed over the incision. Counts were correct x3. The patient had no immediate complications other than a mild hemorrhage which was controlled by the end of the case. FINDINGS: 1. Term appropriate for gestational age viable male delivered at 0919 hours with Apgars of 8 and 9 at 1 and 5 minutes respectively. 2. Intact placenta with 3-vessel cord discarded. 3. Cord blood taken for routine analysis. 4. Minimal omentum to fascia adhesions. 5. Miranda catheter draining clear urine preoperatively and postoperatively. Should Ms. Ireland become for a third time at her current weight, it would be my recommendation that she is not delivered at our hospital, but at a facility that is better equipped to manage her case due to her extreme level of obesity. For her overall health and well-being, it would be advised that she not attempt to conceive again until she has lost a significant amount of weight. Job ID: [id number] MTDD
[2020-01-09] MEDS: diphenhydrAMINE 25 MG CAP PO PRN ×2 (19:22→23:19)
[2020-01-09] MEDS: Enoxaparin Sodium 40 MG/0.4 ML SYRINGE SC SCH (21:37)
[2020-01-09] MEDS ORDERED: Enoxaparin Sodium 40 MG/0.4 ML SYRINGE SC SCH (23:00)
[2020-01-10 06:04] LABS: Hemoglobin 10.2 g/dL (12.0-16.0); Mean Corpuscular HGB CONC 34.1 g/dL (32.0-36.0); Mean Corpuscular Volume 87.9 fL (78.0-98.0); Platelet Count 202 thou/uL (130-400); RBC Distribution Width 13.2 % (11.5-14.5); Red Blood Cell (RBC) Count 3.38 mill/uL (4.20-5.40); White Blood Cell (WBC) Count 10.8 thou/uL (4.8-10.8)
[2020-01-10] MEDS: diphenhydrAMINE 25 MG CAP PO PRN ×2 (06:21→11:35)
[2020-01-10] MEDS: Ibuprofen 800 MG TAB PO SCH ×3 (06:21→21:20)
[2020-01-10] MEDS: Levothyroxine 150 MCG TAB PO SCH (06:31)
--- NOTE | 2020-01-10 07:08 | PDOC.PP ---
Post Progress Note Post Day #: 1 Subjective: Doing well this morning. No concerns. Tolerating PO solids and liquids without n /v. Miranda just removed. No flatus yet. Eager to ambulate this morning. Pain well -controlled. Desires IUD contraception. PO intake tolerated: yes Flatus: no Ambulation: no Vital Signs (12 hours) Temp Pulse Resp BP Pulse Ox 01/10/20 05:45 98.1 F 70 16 121/70 01/10/20 00:00 98.8 F 74 20 117/57 L 97 01/09/20 19:11 98.8 F 78 20 126/60 96 Weight Weight 226.796 kg - Physical Examination General: NAD (resting comfortably, no concerns) Cardiovascular: no m/r/g, RRR Respiratory: clear to auscultation bilaterally Abdominal: + bowel sounds, no distention, appropriately TTP Fundus firm & at: below umbilicus however difficult to appreciate due to body habitus Extremities: negative homans (B) (SCDs inplace) Skin: CS incision dry & intact (woudn vac in place) Neurological: no gross focal deficits Psychiatric: A&Ox3, normal affect Result Diagrams: 01/10/20 05:46 Additional Labs: Post Labs Blood Type O POSITIVE 01/09/20 06:26 Hep Bs Antigen Non-Reactive S/CO (NonReactive) 01/09/20 06:26 (1) S/P repeat low transverse Code(s): Z98.891 - HISTORY OF UTERINE SCAR FROM PREVIOUS SURGERY Status: Acute - Assessment/Plan 29 yo -> 2 s/p rLTCS @ 37.3 by 12 week U/S on 01/09/20, now POD #1 #Term SIUP, PPD#1 -s/p rLTCS -QBL >1000cc -GBS negative -marijuana use in -complicated by gHTN and morbid obesity - BPs WNL since delivery and pre-op -Hb 11.9 -> 10.2 -Start PO iron -Lovenox 40mg BID - high risk for DVT with morbid obesity, , and post c/s -Xa level < 0.1, will need increase of Lovenox dose, will adjust and monitor Xa level -Will need 1-2 weeks of outpt VTE ppx. -Incision c/d/i with wound vac -Miranda removed this AM. Will monitor void and flatus. Encourage ambulation today. -Desires IUD for contraception PP, will discuss further at PP visit #gHTN -BPs have been controlled -not on home medication -cont to monitor #Hypothyroidism - cont Levothyroxine Diet: Full VTE: Lovenox IVF: SL PCP: LAUREL Ferrera Dispo: Cont routine PP care. VTE pharm ppx adjustments. Anticipate discharge tomorrow vs Monday pending clinical course. Addendum - Attending - Attending Attestation Date/Time: 01/10/20 0259 I personally evaluated the patient and discussed the management with Dr. Oliveira. I agree with the History, Examination, Assessment and Plan documented above with any addition or exceptions noted below. Will review lovenox dosing.
[2020-01-10] MEDS: Ferrous Sulfate 325 MG TAB PO SCH (07:19)
[2020-01-10] MEDS: Enoxaparin Sodium 40 MG/0.4 ML SYRINGE SC SCH ×2 (08:09→21:21)
[2020-01-10] MEDS: Prenatal Vitamin 1 TAB PO SCH (08:12)
[2020-01-10] MEDS ORDERED: Enoxaparin Sodium 40 MG/0.4 ML SYRINGE SC SCH (09:00)
[2020-01-10] MEDS ORDERED: Adacel (T-DAP) 0.5 ML SYRINGE IM ONE (10:55)
[2020-01-10] MEDS: HYDROcodone/Acetaminophen 5/325 mg Tablet PO PRN (14:37)
[2020-01-10] MEDS: Simethicone Chewable 80 MG TAB PO PRN (21:20)
[2020-01-11] MEDS: Ibuprofen 800 MG TAB PO SCH ×3 (04:25→21:02)
[2020-01-11] MEDS: HYDROcodone/Acetaminophen 5/325 mg Tablet PO PRN ×2 (04:29→12:23)
[2020-01-11] MEDS: Levothyroxine 150 MCG TAB PO SCH (04:40)
--- NOTE | 2020-01-11 05:52 | PDOC.OBPPN ---
FMR OB PN: Subj - Interval History Hospital Day: 2 Day: PPD #2 Chief Complaint: rLTCS Indentification: 29 y/o @ 37.3 wks c/w 12 wk sono delievered via rLTCS @ 0919 on 01/09/20 Interval History: Some pain relieved w/med. Soaked 2-3 pads. Voiding. Flatus. No N/V/D. FMR OB PN: Obj - Maternal Vital signs: BP: 134/61 HR: 84 RR: 16 Tmax: 98.1 - Urine output I&O: 01/09/20 01/10/20 01/11/20 06:59 06:59 06:59 Intake Total 3140 600 Output Total 2881 810 Balance 259 -210 FMR OB PN: Exam - Physical Exam General: NAD, other HEENT: normocephalic and atraumatic Heart: RRR General: CTAB Abdomen: soft, bowel sound present : other (no erythema/signs of infection/swelling around site of wound vac) FMR OB PN: Data - Labs Lab results: Laboratory Results - last 24 hr 01/10/20 01/11/20 05:46 01:17 WBC 10.8 RBC 3.38 L Hgb 10.2 L Hct 29.7 L MCV 87.9 MCH 30.0 MCHC 34.1 RDW 13.2 Plt Count 202 MPV 9.0 Heparin Anti-Xa, LM Wt Less than 0.1 FMR OB PN: A/P - Problem List (1) Morbid obesity Current Visit: No Status: Chronic Code(s): E66.01 - MORBID (SEVERE) OBESITY DUE TO EXCESS CALORIES (2) Gestational hypertension Current Visit: No Status: Acute Code(s): O13.9 - GESTATIONAL HTN W/O SIGNIFICANT PROTEINURIA, UNSP TRIMESTER Qualifiers: Trimester: third trimester Qualified Code(s): O13.3 - Gestational [ -induced] hypertension without significant proteinuria, third trimester (3) S/P repeat low transverse Current Visit: Yes Status: Acute Code(s): Z98.891 - HISTORY OF UTERINE SCAR FROM PREVIOUS SURGERY Discussion: Pt is a 29 y/o -->2 who delivered TIMOTHY M via rLTCS at 37.3 wga by 12 week sono on 01/09/20 @ 0919. ## Term sIUP, PPD #2 -s/p rLTCS -QBL >1000cc -GBS negative -Lovenox increased from 40-->60mg BID due to anti Xa not at therapeutic levels -will re-check anti Xa @ 1300 (01/10) -will need 4-6 wks of outpatient VTE ppx -incision c/d/i/ with wound vac -prn pain control -desires IUD for contraception PP, will discus further at outpatient PP visit ## gHTN -BP 120s/60s: max 134/61, continue to monitor and monitor for pre-E sxs -not on home medications ## Anemia -Hb trend 11.9-->10.2 -continue with PO iron 325 mg, not currently breast feeding ## Hypothyroidism -previously on Levothyroxine 150mcg -last TSH was 2.63 10/27 -will recheck TSH and dose medication accordingly ## Morbid Obesity -BMI = 69.7 Diet: Full VTE: Lovenox PCP: Olivia Dispo: will continue to monitor. encouraged ambulating more today. anticipate d/ c tomorrow. will f/u with anti-Xa levels and TSH. This H&P was discussed with Dr. Hemphill and Dr. Figueroa who agree with the above documentation and plan. Addendum - Attending - Attending Attestation Date/Time: 01/11/20 1067 I personally evaluated the patient and discussed the management with resident MD I agree with the History, Examination, Assessment and Plan documented above with any addition or exceptions noted below. POD#2 Patient meeting most milestones. Pain controlled. Has not been ambulating well. Lochia appropriate. Lovenox still not at goal for ppx. Will repeat antiXa level 4 hours after AM injection. Remains asymptomatic. BP WNL. TSH in AM. Will likely need to adjust L4 due to pp period. Wound vac in place. Functioning well. No change in bleeding. Fundus nontender. Likely d/c in AM ABrayMD
[2020-01-11] MEDS: Ferrous Sulfate 325 MG TAB PO SCH (08:09)
[2020-01-11] MEDS: Enoxaparin Sodium 60 MG/0.6 ML SYRINGE SC SCH ×2 (08:09→20:59)
[2020-01-11] MEDS: Prenatal Vitamin 1 TAB PO SCH ×2 (08:09→08:11)
[2020-01-11] MEDS: Docusate Calcium (SURFAK) 240 MG CAP PO SCH (14:00)
[2020-01-12] MEDS: HYDROcodone/Acetaminophen 5/325 mg Tablet PO PRN (05:01)
[2020-01-12] MEDS: Ibuprofen 800 MG TAB PO SCH ×2 (05:01→14:23)
[2020-01-12] MEDS: Simethicone Chewable 80 MG TAB PO PRN (05:06)
--- NOTE | 2020-01-12 05:36 | PDOC.OBPPN ---
FMR OB PN: Subj - Interval History Hospital Day: 3 Day: PPD #3 Indentification: 29 y/o ->2 delievered TIMOTYH Rea via rLTCS @ 37.3 wks c/w 12 wk sono Interval History: Pain controlled, ambulating well, void/stooling well, no pre- E sxs. FMR OB PN: Obj - Maternal Vital signs: BP: 120s/60s-70s, max: 127/57 HR: 85 RR: 18 Tmax: 98.4 - Urine output I&O: 01/10/20 01/11/20 01/12/20 06:59 06:59 06:59 Intake Total 3140 600 Output Total 2881 810 Balance 259 -210 FMR OB PN: Exam - Physical Exam General: NAD Heart: RRR General: CTAB : other (wound vac c/d/i, no sxs of erythema or infection noted) FMR OB PN: Data - Labs Lab results: Laboratory Results - last 24 hr 01/11/20 01/12/20 01/12/20 13:04 00:57 00:57 Heparin Anti-Xa, LM Wt Less than 0.1 Less than 0.1 TSH 3rd Generation 4.5974 FMR OB PN: A/P - Problem List (1) Morbid obesity Status: Chronic Code(s): E66.01 - MORBID (SEVERE) OBESITY DUE TO EXCESS CALORIES (2) Gestational hypertension Status: Acute Code(s): O13.9 - GESTATIONAL HTN W/O SIGNIFICANT PROTEINURIA, UNSP TRIMESTER Qualifiers: Trimester: third trimester Qualified Code(s): O13.3 - Gestational [ -induced] hypertension without significant proteinuria, third trimester (3) S/P repeat low transverse Status: Acute Code(s): Z98.891 - HISTORY OF UTERINE SCAR FROM PREVIOUS SURGERY Discussion: Pt is a 29 y/o ->2 who delivered a TIMOTHY Rea via rLTCS @ 37.3 wks c/w 12 wk sono on 01/08 @ 0919. ## Term sIUP -rLTCS -QBL >1000cc -GBS negative -anti Xa on 7/5 am < 0.1 -continue 60mg BID Lovenox -will require 2-4 weeks outpatient ppx -incision c/d/i with would vac -prn pain control -would like IUD for PP contraception, will discuss further at outpatient PP appointment ## gHTN -no severe BP range pressures, continue to monitor, continue to monitor for development of any pre-E sxs -not on home medication ## Hypothyroidsim -TSH on 01/10 = 4.5674 -will start pt @ levothyroxine 150 mcg, will need to f/u labs in 2 weeks ## Anemia -Hgb trend 11.9--> 10.2 -continue with PO iron, not currently breast feeding -pt will need to take vitamin gummies Diet: Full VTE: Lovenox IVF PCP: [facility]: will be d/c home today. continue with lovenox outpatient will need close f /u with [facility] this week. This H&P was discussed with Dr. Hemphill and Dr. Figueroa who agree with the above documentation and plan. Addendum - Attending - Attending Attestation Date/Time: 01/12/20 0807 I personally evaluated the patient and discussed the management with resident team I agree with the History, Examination, Assessment and Plan documented above with any addition or exceptions noted below. POD#3/PPD#3 Patient doing well. Ambulating multiple times in the halls. No longer breast feeding. Now only bottle. Pain controlled on PO meds. Mild lochia. Wound vac in place. Is complaining of medical thigh pain and notes edema to that leg. States pain is different from normal pain she experiences from her varicos vein but distribution of pain is the same. Worse with sitting and thigh flexed at hip. - s/p RLTCS: Extremely difficult surgery. Will need referral for future pregnancies. Meeting milestones. Ok to d/c to home. Follow up at [facility] on Monday or Monday. Will need removal of wound vac. - BMI 70: Need to consider lifestyle and surgical management - gHTN: Continue to monitor BP and symptoms at home. - risk for VTE: Continue lovenox for 4 to 6 wks pp. Ambulating well. Still not at goal range for ppx dosing. Will continue to titrate and monitor outpatient. Concern for pelvic vs upper LE VTE. Discussed with rad. Unable to obtain vascular CT due to body habitus and wt. US only option and low yield. US ordered but if suspicion high (which is not at this time) will adjust to therapeutic Lovenox dosing. Rosi
[2020-01-12] MEDS: Levothyroxine 150 MCG TAB PO SCH (06:00)
[2020-01-12 08:19] VITALS: BP 119/64; TEMP 97.9
[2020-01-12] MEDS: Ferrous Sulfate 325 MG TAB PO SCH (09:49)
[2020-01-12] MEDS: Prenatal Vitamin 1 TAB PO SCH (09:56)
[2020-01-12] MEDS: Docusate Calcium (SURFAK) 240 MG CAP PO SCH (09:57)
[2020-01-12] MEDS: Enoxaparin Sodium 60 MG/0.6 ML SYRINGE SC SCH (09:57)
--- NOTE | 2020-01-12 16:24 | ULT ---
LEFT LOWER EXTREMITY VENOUS DOPPLER STUDY: Date: 01-12-2020 Provided Clinical History: Thigh pain. FINDINGS: Evaluation is limited by patient body habitus. The distal left femoral vein is not visualized. The le ft common femoral, femoral, popliteal, posterior tibial, greater saphenous and profunda femoral veins demonstrate an otherwise normal sonographic appearance. IMPRESSION: No sonographic evidence for left lower extremity deep venous thrombosis with limitations as described . POS: EMI
== END 2020-01-12 15:15 | disposition home or self-care (01) | DRG 787 ==
LOC: L&D 04:53 → 3SW 13:30
PROVIDERS: ADMIT Student in an Organized Health Care Education/Training Program; ATTEND Student in an Organized Health Care Education/Training Program
PROC: 10D00Z1 Extraction of Products of Conception, Low, Open Approach (ICD-10-PCS; principal; 2020-01-09)
DX: O34.211 Maternal care for low transverse scar from previous cesarean delivery (principal); O99.324 Drug use complicating childbirth; O72.1 Other immediate postpartum hemorrhage; O99.214 Obesity complicating childbirth; O13.4 Gestational [pregnancy-induced] hypertension without significant proteinuria, complicating childbirth; O99.284 Endocrine, nutritional and metabolic diseases complicating childbirth; F12.10 Cannabis abuse, uncomplicated; O99.62 Diseases of the digestive system complicating childbirth; E03.9 Hypothyroidism, unspecified; E28.2 Polycystic ovarian syndrome; K66.0 Peritoneal adhesions (postprocedural) (postinfection); E66.01 Morbid (severe) obesity due to excess calories; O90.81 Anemia of the puerperium; D64.9 Anemia, unspecified; Z3A.37 37 weeks gestation of pregnancy; Z37.0 Single live birth; Z79.890 Hormone replacement therapy; Z79.82 Long term (current) use of aspirin
CPT/HCPCS: 36415; 51702; 84443; 85027; 85520; 86780; 86850; 86900; 86901; 87340; J1200; J1650; J1885; J2250; J2274; J2405; J2590; J3010; Q0163

== ENCOUNTER 2020-01-29 14:47 | Outpatient (CLI) | payer OTHER ==
--- NOTE | 2020-01-29 15:23 | ULT ---
EXAM: Ultrasound of the lower abdominal wall HISTORY: Status post section with red hard skin at the section site. TECHNIQUE: Multiplanar grayscale and color Doppler images were obtained in a targeted ultrasound of t he lower abdominal wall. COMPARISON: None FINDINGS: Skin thickening is seen along the site. There is a fluid collection measuring 12.7 x 12.9 x 5.0 cm in size. IMPRESSION: Focal fluid collection beneath the section scar may represent an abscess or sero ma.
== END 2020-01-29 14:48 | disposition home or self-care (01) ==
LOC: SCSULT 14:47
PROVIDERS: ATTEND Student in an Organized Health Care Education/Training Program
DX: T81.89XA Other complications of procedures, not elsewhere classified, initial encounter (principal)
CPT/HCPCS: 76999

== ENCOUNTER 2020-01-31 09:52 | Inpatient (IN) | payer OTHER ==
--- NOTE | 2020-01-31 12:18 | PDOC.FPRHP ---
- History of Present Illness Chief Complaint: seroma beneath C section scar History of Present Illness: 29 yo female direct admit from Dr. Figueroa at [facility] with a BMI>70 who is post-op day 22 following a rLTCS complaining of erthyma, pain, and swelling along incision site. was performed on 01/09/2020 and a wound vac was placed at this time. Patient's wound vac and half the steffen were removed on 01/19/2020. On her next appointment, 01/22/2020, the remaining steffen were removed and Dr. Figueroa expressed concern regarding the redness and swelling of the patient's incision. At this time she was prescribed a 7 day course of Doxycycline which she completed 2 days prior to presentation. An US on Monday, 01/28 revealed a [id number] fluid collection beneath the C section scar: abscess vs seroma. At time of presentation reports pain in her left groin as well as pain to palpation to the area centralized above the scar. She denies any fever, chills, or drainage from incision site. - Allergies/Adverse Reactions Allergies Allergy/AdvReac Type Severity Reaction Status Date / Time No Known Allergies Allergy Verified 01/09/20 05:40 - Home Medications Medication Instructions Recorded Confirmed Type Ibuprofen [Motrin] 800 mg PO Q8HR #21 tab 01/12/20 01/31/20 Rx Levothyroxine Sodium [Tirosint] 150 mcg PO DAILY #30 capsule 01/12/20 01/31/20 Rx Enoxaparin Sodium [Lovenox] 68 mg SC BID 01/31/20 01/31/20 History - History PMHx: gHTN, hypothyroidism history of pre diabetes, PCOS, and essential HTN that patient says resolved when she was 19 PSHx: Cholecystectomy C Sectionx2 FHx: mom- DM, HTN dad- HTN Social: Marijuana use in May - Review of Systems General: denies: fever/chills, weight/appetite/sleep changes ENT: denies: nasal congestion, rhinorrhea Respiratory: reports: cough. denies: congestion, shortness of breath Cardiovascular: denies: chest pain, edema Gastrointestinal: reports: diarrhea, abdominal pain. denies: nausea, vomiting, constipation Genitourinary: denies: dysuria, polyuria Musculoskeletal: reports: other (tenderness and redness to skin above c section incision site) - Vital signs BP: 134/77 HR: 90 RR: 16 T:98.9 Pox: 97% on RA Wt: 227kg - Physical Exam Constitutional: NAD, awake, alert and oriented, well developed HEENT: normocephalic and atraumatic, EOMI, grossly normal hearing Neck: FROM Heart: RRR, normal S1/S2, no murmurs/rubs/gallops, pulses present, no edema Lungs: CTAB, no respiratory distress, good air movement, no rales/rhonchi, no wheezing, no retractions Abdomen: soft -Abdomen: mild erythema and tenderness to palpation above incision site. incision is clean , dry and intact. Steri strips are present. No drainage Musculoskeletal: ROM grossly normal Neurological: no focal deficit Skin: no rash/lesions Psychiatric: normal mood and affect, good judgment and insight, intact recent and remote memory FMR H&P: Results - Labs Result Diagrams: 01/31/20 15:58 01/31/20 15:58 FMR H&P: A/P - Plan 29 yo female BMI>70 complaining of pain, erythema, and swelling above scar. Seroma vs Abscess of Section wound - post-op day 22 - US revelead [id number] fluid collection beneath scar - Improved erythema and swelling with 7 day course of Doxy that she completed on 01/28 - Consult surgery: Does not recommend surgical drainage due to patient's body habitus. Recommends aspiration via IR drain placement vs observation to reabsorption or self drainage. Hypothyroidism - Continue home levothyroxine PCP: Henry Dispo: Pending decision regarding drainage of fluid collection. Expected LOS < 48 hours. FMR H&P: Upper Level - Plan Date/Time: 01/31/20 1218 Sloane Elliott, have evaluated this patient and agree with findings/plan as outlined by learning and development intern resident. Pertinent changes/additions are listed here. 29 yo that is s/p rLTCS on 01/08 presents for admission for post op complication. rLTCS was performed at 37.4 wks gestation for medical indication of gHTN. She had intraoperative QBL >1000 but hemostasis was obtained prior to closure. She was discharged on lovenox BID for VTE prophylaxis and reports compliance. Says her levels have been monitored outpatient and that 70 BID is the appropriate dose for her. She has had regular f/u at [facility] since discharge on 01/11. Was on omnicef and doxy with improvement. Finished 7 day course of doxycycline on 01/28. Noted this somewhat improved her abdominal pain, swelling and redness. She does not believe erythema persists. Denies fever, chills. Has good PO intake. PMH includes morbid obesity with BMI >70 (unable to calculate recently d/t inability to weigh patient on any scale on the floors). Hx gestational HTN, hypothyroid Surg hx: LTCS x2, cholecystectomy Social: prior marijuana use. Denies tobacco, alcohol use. Family hx: mother-DM, HTN. Father-HTN US performed outpatient 01/28 showed 12.7 x 12.9 x 5 cm focal fluid collection, abscess vs seroma VS: 98.9, 90, 16, 97% on RA, 134/77 PE: Gen: morbidly obese, pleasant, well appearing Heart: RRR, no murmur Lungs: CTA anteriorly, exam limited d/t body habitus Abd: obese, not TTP, very minimal erythema above umbilicus, incision clean, dry , intact, healing well, no evidence of dehiscence Likely Seroma -Completed 7 day course of doxy on 01/28, will not restart abx unless labs concerning for acute infection -Patient well appearing on exam and VSS. No need for IVF at this time -Pending CMP, CBC, CRP, Sed rate -US report available in chart -Consult general surgery for further recommendations Chronic medical problems per learning and development intern note. Ppx: Lovenox 70 BID for DVT ppx considering morbid obesity. Levels monitored outpatient per patient. Dispo: admit to medical floor, inpatient. Pending surgical consult, await recommendations Addendum - Attending - Attending Attestation Date/Time: 01/31/201811 I personally evaluated the patient and discussed the management with Dr. Blanchard/ Marcella. I agree with the History, Examination, Assessment and Plan documented above with any addition or exceptions noted below. IR consult for US guided aspiration. Hold anticoagulation. NPO at midnight. Discussed I/R/B/A for IR guided procedure.
[2020-01-31] MEDS ORDERED: Calcium Carbonate 500 MG ChewTAB PO PRN (14:52)
[2020-01-31] MEDS ORDERED: Ondansetron PF 4 MG/2 ML Vial SLOW IVP PRN (14:52)
[2020-01-31] MEDS ORDERED: Acetaminophen 650 MG Suppository PR PRN (14:52)
[2020-01-31] MEDS ORDERED: Acetaminophen 325 MG TAB PO PRN (14:52)
[2020-01-31] MEDS ORDERED: Ondansetron ODT 4 MG TAB PO PRN (14:52)
[2020-01-31] MEDS ORDERED: Bisacodyl 5 MG TAB PO PRN (14:52)
[2020-01-31] MEDS ORDERED: HYDROcodone/Acetaminophen 7.5/325 mg Tablet PO PRN ×2 (14:52)
[2020-01-31] MEDS ORDERED: Polyethylene Glycol 3350 17 GM Packet PO PRN (14:56)
[2020-01-31 15:45] VITALS: BMI 69.7
[2020-01-31 16:08] LABS: #Basophils 0.1 thou/uL (0.0-0.2); #Eosinphils 0.3 thou/uL (0.0-0.7); #Lymphocytes 2.7 thou/uL (1.20-3.40); #Monocytes 0.8 thou/uL (0.11-0.59); #Neutrophils 7.8 thou/uL (1.40-6.50); %Basophils 0.7 % (0.0-1.0); %Eosinophils 2.9 % (0.0-10.0); %Lymphocytes 23.3 % (21.0-51.0); %Monocytes 6.8 % (0.0-10.0); %Neutrophils 66.3 % (42.0-75.0); Hemoglobin 11.5 g/dL (12.0-16.0); Mean Corpuscular HGB CONC 34.3 g/dL (32.0-36.0); Mean Corpuscular Hemoglobin 30.1 pg (27.0-31.0); Mean Corpuscular Volume 87.7 fL (78.0-98.0); Mean Platelet Volume 8.6 fL (7.4-10.4); Platelet Count 334 thou/uL (130-400); RBC Distribution Width 12.6 % (11.5-14.5); Red Blood Cell (RBC) Count 3.84 mill/uL (4.20-5.40); White Blood Cell (WBC) Count 11.8 thou/uL (4.8-10.8)
[2020-01-31 16:29] LABS: ALT (SGPT) 28 U/L (8-55); AST (SGOT) 21 U/L (5-34); Albumin 3.5 g/dL (3.5-5.0); Alkaline Phosphatase 73 U/L (40-110); Anion Gap 9 mmol/L (10-20); BUN (Urea Nitrogen) 16 mg/dL (7.0-18.7); Bilirubin, Total 0.5 mg/dL (0.2-1.2); CRP (Inflammatory) 0.98 mg/dL (= or < 0.5); Calc. Creatinine Clearance 357 mL/min (70-130); Calcium 8.8 mg/dL (7.8-10.44); Carbon Dioxide 29 mmol/L (22-29); Chloride 106 mmol/L (98-107); Estimated GFR-MDRD 81; Globulin 3.3 g/dL (2.4-3.5); Glucose 86 mg/dL (70-105); Potassium 4.1 mmol/L (3.5-5.1); Protein, Total 6.8 g/dL (6.0-8.3); Sodium 140 mmol/L (136-145)
--- NOTE | 2020-01-31 17:37 | PDOC.CONS ---
- Consultation CHIEF COMPLAINT: Suprapubic pain after section HISTORY OF PRESENT ILLNESS: 23-year-old female presents from her primary care office with erythema and pain in the suprapubic area of her section incision. Briefly, the patient underwent section approximately 3 weeks ago. Her incision was managed with a negative pressure wound therapy device. This was removed earlier this week. On follow-up with her primary care provider, there was concern for erythema in the area and associated discomfort. Bedside ultrasound was performed by the family practice team and reports a 12.1 x 2.5 cm fluid collection beneath the incision. REVIEW OF SYSTEMS: General: Denies recent weight changes, fever, or chills. Eyes: Denies visual changes, pain, or irritation ENT: Denies changes in hearing, nasal discharge, or sore throat Cardiovascular: Denies chest pain, palpitations, shortness of breath, or edema. Respiratory: Denies cough, shortness of breath, or wheezing Gastrointestinal: Denies abdominal pain, nausea, or vomiting. Genitourinary: Denies frequent urination or dysuria Musculoskeletal: Denies pain or restricted motion Integumentary: Denies abnormal rashes, sores, or skin lesions Neurological: Denies numbness, tingling, or weakness. Psychiatric: Denies new onset anxiety or depression Endocrine: Denies temperature intolerances, polyuria, or excessive thirst Hematologic: Denies abnormal bruising or bleeding PAST MEDICAL HISTORY: [ ] PAST SURGICAL HISTORY: [ ] FAMILY HISTORY: [ ] SOCIAL HISTORY [ ] smoker, denies illicit drug use, endorses occasional alcohol consumption. PHYSICAL EXAM: General: Alert and oriented, no acute distress. Super morbidly obese ENT: Sclera anicteric, pupils equal and reactive, mucous membranes moist Neck: No jugular venous distention, trachea midline Cardiovascular: Regular rate and rhythm Pulmonary: Clear to auscultation Abdominal: Soft, nondistnded. Mild TTP around C/S area. Mild erythema. No discharge Genitourinary: Normal anatomy Rectal: Deferred Integument: No abnormal rashes or lesions Musculoskeletal: No gross deformities or edema, normal range of motion LABORATORY: Labs reviewed. WBC 11.8 N86. Others grossly normal IMAGING: US performed by team. Reports fluid collection beneath incision site of 12.1 x 2.5 cm. ASSESSMENT: 29-year-old female status post section with complicated wound care with negative wound pressure therapy device. Now with erythema and fluid collection. Given the patient's overall clinical picture and laboratory analysis, it seems unlikely that this is an abscess. More likely to be a seroma from her wound management. PLAN: Consider aspiration or interventional drain placement. Will follow peripherally. Please call for any further questions.
[2020-01-31] MEDS: Ibuprofen 800 MG TAB PO SCH (20:53)
[2020-01-31] MEDS ORDERED: Enoxaparin Sodium 60 MG/0.6 ML SYRINGE SC SCH (21:00)
[2020-01-31] MEDS ORDERED: Enoxaparin Sodium 80 MG/0.8 ML SYRINGE SC SCH (21:00)
--- NOTE | 2020-02-01 06:39 | PDOC.FM ---
- Subjective Subjective: Ms. Ireland is feeling well this morning. She feels that resting through the evening has helped the soreness along her incision site. - Objective MAR Reviewed: Yes Vital Signs & Weight: Vital Signs (12 hours) Temp Pulse Resp BP Pulse Ox 02/01/20 03:16 98 F 61 16 108/61 99 01/31/20 23:27 98.7 F 69 18 94/57 L 99 01/31/20 20:00 99 01/31/20 19:53 98.8 F 87 16 124/76 99 Weight Weight 226.796 kg I&O: 01/30/20 01/31/20 02/01/20 06:59 06:59 06:59 Intake Total 810 Balance 810 Result Diagrams: 01/31/20 15:58 01/31/20 15:58 Phys Exam - Physical Examination Constitutional: NAD HEENT: moist MMs, sclera anicteric Neck: full ROM Respiratory: no wheezing, no rales, no rhonchi, clear to auscultation bilateral Cardiovascular: RRR, no significant murmur, no rub Gastrointestinal: soft, positive bowel sounds red and mildly tender to palpation midline above incision site Musculoskeletal: no edema, pulses present Neurological: moves all 4 limbs Psychiatric: normal affect, A&O x 3 Dx/Plan - Plan Plan: 29 yo female BMI>70 complaining of pain, erythema, and swelling above scar. Seroma vs Abscess of Section wound - post-op day 23 - US on 01/28 revelead [id number] fluid collection beneath scar - Improved erythema and swelling with 7 day course of Doxy that she completed on 01/28 - Consult surgery: Does not recommend surgical drainage due to patient's body habitus. Recommends aspiration via IR drain placement vs observation to reabsorption or self drainage. - IR consult for US guided aspiration this AM. Held lovenox, made NPO at midnight. Hypothyroidism - Continue home levothyroxine PCP: Henry Dispo: Pending results of US guided aspiration. Expected LOS < 48 hours. Addendum - Attending - Attending Attestation Date/Time: 02/01/20 1428 I personally evaluated the patient and discussed the management with Dr. Blnachard I agree with the History, Examination, Assessment and Plan documented above with any addition or exceptions noted below - Patient without complaints. Denies any pain, drainage. Afebrile VSS. A/P: 1) Seroma s/p aspiration- 20-25mL fluid removed; sent for gram stain and culture. No erythema or drainage noted. Will d/c home with close follow-up. Will give additional week of doxycyclline as she responded well to this.
[2020-02-01] MEDS: Ibuprofen 800 MG TAB PO SCH (07:27)
[2020-02-01] MEDS ORDERED: LEVOTHYROXINE SODIUM 150 MCG PO SCH (09:00)
--- NOTE | 2020-02-01 11:17 | ULT ---
ULTRASOUND GUIDED ASPIRATION OF COMPLEX FLUID COLLECTION ADJACENT TO THE PATIENTS C SECTION SCAR: HISTORY: A loculated fluid collection which is just beneath and along more of the right side of a sc ar is demonstrated. It measures approximately 4 cm in maximum AP dimension and 9 cm in width. It aviles s a very multiloculated appearance. After informed consent was obtained, the patient was prepped and draped in normal sterile fashion. L ocal anesthesia was obtained with 1% Xylocaine mixed with sodium bicarb. A 6 [employer] catheter wa s advanced into this complex fluid collection and approximately 20 cc of blood-tinged fluid which james eared to be a typical seroma was aspirated. The sample was sent to the lab. The patient tolerated t he procedure well. There are no immediate complications. IMPRESSION: Ultrasound-directed aspiration of the complex fluid collection. No immediate complications of the pr ocedure. POS: OFF
[2020-02-01 11:23] VITALS: BP 127/84; TEMP 97.9
--- NOTE | 2020-02-01 19:02 | PDOC.BPN ---
- Brief Progress Note Doing well s/p aspiration of the cutaneous abdominal fluid collection. Postoperative pain well controlled with current regimen. Tolerating diet, without nausea or vomiting. EXAM: General: Alert and oriented, no acute distress, resting comfortably Pulmonary: No dyspnea or difficulty breathing Abdomen: Soft, non-distended, incisions clean, mild erythema and edema CV: Regular rate and rhythm, palpable distal pulses Extremities: No edema PLAN: 29-year-old female with fluid collection after section and management with negative pressure wound therapy device, status post aspiration by family practice service. Fluid reported to be bloody and seroma-like. Continue management per family practice service. We will sign off. Please call for any further questions.
--- NOTE | 2020-02-03 03:28 | DIS ---
DATE OF ADMISSION: 01/31/2020 DATE OF DISCHARGE: 02/01/2020 RESIDENT: Napoleon Blanchard MD ADMITTING ATTENDING: Roger Naidu MD DISCHARGE ATTENDING: Bethany Downing MD CONSULTS: Surgery, Dr. Hicks. PROCEDURES: Ultrasound-guided aspiration. PRIMARY DIAGNOSIS: Seroma of -section wound. SECONDARY DIAGNOSES: Hypothyroidism. DISCHARGE MEDICATIONS: 1. Ibuprofen 800 mg p.o. q.8 hours. 2. Levothyroxine 150 mcg p.o. daily. 3. Lovenox 68 mg subcu b.i.d. 4. Doxycyline 100 mg p.o. b.i.d. for 7 days. DISCONTINUED MEDICATIONS: None. HISTORY OF PRESENT ILLNESS AND HOSPITAL COURSE: Ms. Ireland is a 29-year-old female, directly admitted from Dr. Figueroa at clinic, who is postop day # 22 following a repeat lower transverse , complaining of erythema, pain, and swelling along the incision site. At the time of , a wound VAC was placed which was removed 10 days following. Three days after that, Dr. Figueroa was concerned regarding the redness and swelling of the patient's incision. She was prescribed a 7-day course of doxycycline which she feels improved the redness and swelling. An ultrasound on 01/28 revealed a 12 x 12 x 5 fluid collection beneath the scar suggesting abscess versus seroma. The patient denied any fever, chills, or drainage from the incision site. The patient is afebrile. White count was 11.8 and C-reactive protein was 0.98. Dr. Hicks of General Surgery was consulted. He recommended no surgical drainage at this time due to patient's body habitus. He recommended either drainage per IR or watch and wait for reabsorption on its own. Ultrasound-guided aspiration per IR was successful. Approximately 20 mL of blood-tinged fluid which appear to a typical seroma was aspirated. The patient tolerated the procedure well. There were no immediate complications. The patient was discharged home on an additional 7-day course of doxycycline and instructed to follow up with her obstetrics provider. DISPOSITION: Stable. DISCHARGE INSTRUCTIONS: Location: Home. Diet: Regular. Activity: As tolerated. Followup: Follow up with normal obstetrics provider next week. Job ID: [id number] [facility]
== END 2020-02-01 14:25 | disposition home or self-care (01) | DRG 776 ==
LOC: SJJU 14:28
PROVIDERS: ADMIT Family Medicine; ATTEND Family Medicine
PROC: 0J983ZX Drainage of Abdomen Subcutaneous Tissue and Fascia, Percutaneous Approach, Diagnostic (ICD-10-PCS; principal; 2020-02-01)
DX: O90.2 Hematoma of obstetric wound (principal); O13.5 Gestational [pregnancy-induced] hypertension without significant proteinuria, complicating the puerperium; O99.285 Endocrine, nutritional and metabolic diseases complicating the puerperium; E03.9 Hypothyroidism, unspecified; Z79.899 Other long term (current) drug therapy; Z79.890 Hormone replacement therapy; Z90.49 Acquired absence of other specified parts of digestive tract
CPT/HCPCS: 36415; 76942; 80053; 85025; 85652; 86140; 87070; 87205

== ENCOUNTER 2020-09-09 12:55 | Emergency (ER) | payer OTHER ==
--- NOTE | 2020-09-09 13:26 | RAD ---
Chest AP view INDICATION: Chest pain COMPARISON: November 26, 2018 FINDINGS: Lungs: The lungs are clear Cardiac silhouette: The cardiomediastinal silhouette appears within normal limits. Pulmonary vasculature: Normal Pleural spaces: No pleural effusion or pneumothorax is demonstrated. Upper abdomen: No abnormality seen. Osseous structures: No acute osseous abnormality. Additional findings: None. IMPRESSION: No acute cardiopulmonary abnormality.
[2020-09-09 13:51] LABS: #Basophils 0.1 thou/uL (0.0-0.2); #Eosinphils 0.4 thou/uL (0.0-0.7); #Lymphocytes 3.2 thou/uL (1.20-3.40); #Monocytes 0.7 thou/uL (0.11-0.59); #Neutrophils 7.2 thou/uL (1.40-6.50); %Basophils 0.6 % (0.0-1.0); %Eosinophils 3.2 % (0.0-10.0); %Lymphocytes 27.6 % (21.0-51.0); %Monocytes 5.7 % (0.0-10.0); %Neutrophils 62.9 % (42.0-75.0); Mean Corpuscular HGB CONC 32.1 g/dL (32.0-36.0); Mean Corpuscular Hemoglobin 28.1 pg (27.0-31.0); Mean Corpuscular Volume 87.4 fL (78.0-98.0); Mean Platelet Volume 9.2 fL (7.4-10.4); Platelet Count 269 thou/uL (130-400); RBC Distribution Width 13.3 % (11.5-14.5); Red Blood Cell (RBC) Count 4.63 mill/uL (4.20-5.40); White Blood Cell (WBC) Count 11.5 thou/uL (4.8-10.8)
[2020-09-09 14:25] LABS: ALT (SGPT) 24 U/L (8-55); AST (SGOT) 19 U/L (5-34); Albumin 3.9 g/dL (3.5-5.0); Alkaline Phosphatase 75 U/L (40-110); Anion Gap 12 mmol/L (10-20); BUN (Urea Nitrogen) 14 mg/dL (7.0-18.7); Bilirubin, Total 0.6 mg/dL (0.2-1.2); Calc. Creatinine Clearance 0 mL/min (70-130); Calcium 8.9 mg/dL (7.8-10.44); Carbon Dioxide 26 mmol/L (22-29); Chloride 107 mmol/L (98-107); Globulin 3.3 g/dL (2.4-3.5); Glucose 86 mg/dL (70-105); Potassium 3.9 mmol/L (3.5-5.1); Protein, Total 7.2 g/dL (6.0-8.3); Sodium 141 mmol/L (136-145)
[2020-09-09] MEDS ORDERED: Azithromycin 250 MG TAB ONE (15:02)
[2020-09-09 15:17] LABS: Pregnancy Test - Urine (BHCG) Negative (Negative); Pregu Control Background? CLEAR/WHITE (CLR/WHITE); Pregu Control Bar Appear? YES (CONTROL BAR); Specific Gravity 1.027 (1.002-1.036)
--- NOTE | 2020-09-12 16:11 | EKG ---
Test Reason : Blood Pressure : / mmHG Vent. Rate : 069 BPM Atrial Rate : 069 BPM P-R Int : 178 ms QRS Dur : 090 ms QT Int : 390 ms P-R-T Axes : 009 -05 022 degrees QTc Int : 417 ms Normal sinus rhythm Normal ECG Confirmed by GENNY BOSCH DO ([id number]), supervising editor trailer SHAI MINER ([id number]) on 09/12/2020 4:11:27 PM Referred By: Confirmed By:GENNY BOSCH DO
== END 2020-09-09 15:35 | disposition home or self-care (01) ==
LOC: ERS 12:55
DX: R07.9 Chest pain, unspecified (principal); R05 Cough; I10 Essential (primary) hypertension; E03.9 Hypothyroidism, unspecified; R73.03 Prediabetes; Z86.16 Personal history of COVID-19; F17.210 Nicotine dependence, cigarettes, uncomplicated; Z79.899 Other long term (current) drug therapy
CPT/HCPCS: 71045; 80053; 81025; 84484; 85025; 93005

== ENCOUNTER 2021-03-24 12:28 | Emergency (ER) | payer OTHER ==
[2021-03-24 13:08] LABS: #Basophils 0.1 thou/uL (0.0-0.2); #Eosinphils 0.4 thou/uL (0.0-0.7); #Lymphocytes 2.8 thou/uL (1.20-3.40); #Monocytes 0.8 thou/uL (0.11-0.59); #Neutrophils 11.6 thou/uL (1.40-6.50); %Basophils 0.4 % (0.0-1.0); %Eosinophils 2.3 % (0.0-10.0); %Neutrophils 74.4 % (42.0-75.0); Hemoglobin 13.3 g/dL (12.0-16.0); Mean Corpuscular HGB CONC 33.3 g/dL (32.0-36.0); Mean Corpuscular Hemoglobin 28.8 pg (27.0-31.0); Mean Corpuscular Volume 86.4 fL (78.0-98.0); Mean Platelet Volume 8.9 fL (7.4-10.4); Platelet Count 261 thou/uL (130-400); RBC Distribution Width 13.4 % (11.5-14.5); Red Blood Cell (RBC) Count 4.61 mill/uL (4.20-5.40); White Blood Cell (WBC) Count 15.7 thou/uL (4.8-10.8)
[2021-03-24 13:27] LABS: BHCG - Serum Negative (NEGATIVE); Pregs Control Background? CLEAR/WHITE (CLR/WHITE); Pregs Control Bar Appear? YES (CONTROL BAR)
[2021-03-24 13:30] LABS: Chloride 107 mmol/L (98-107); Potassium 4.2 mmol/L (3.5-5.1); Sodium 140 mmol/L (136-145)
[2021-03-24 13:31] LABS: ALT (SGPT) 21 U/L (8-55); AST (SGOT) 20 U/L (5-34); Albumin 3.6 g/dL (3.5-5.0); Alkaline Phosphatase 100 U/L (40-110); BUN (Urea Nitrogen) 11 mg/dL (7.0-18.7); Bilirubin, Total 0.6 mg/dL (0.2-1.2); Calc. Creatinine Clearance 0 mL/min (70-130); Calcium 8.8 mg/dL (7.8-10.44); Carbon Dioxide 27 mmol/L (22-29); Glucose 114 mg/dL (70-105); Lipase 22 U/L (8-78); Protein, Total 6.6 g/dL (6.0-8.3)
[2021-03-24 13:36] LABS: Anion Gap 10 mmol/L (10-20)
[2021-03-25 01:12] LABS: SARS-CoV-2 PCR by NAA Not Detected (NotDetected)
== END 2021-03-24 15:40 | disposition home or self-care (01) ==
LOC: ERS 12:28
DX: R00.2 Palpitations (principal); R11.2 Nausea with vomiting, unspecified; R19.7 Diarrhea, unspecified; E03.9 Hypothyroidism, unspecified; F17.210 Nicotine dependence, cigarettes, uncomplicated; Z20.822 Contact with and (suspected) exposure to COVID-19
CPT/HCPCS: 36415; 71045; 80053; 83690; 84484; 84703; 85025; 93005; U0003; U0005

== ENCOUNTER 2021-04-07 09:14 | Emergency (ER) | payer OTHER ==
[2021-04-07] MEDS ORDERED: Ibuprofen 800 MG TAB ONE (11:41)
== END 2021-04-07 11:50 | disposition home or self-care (01) ==
LOC: ERS 09:14
DX: S93.401A Sprain of unspecified ligament of right ankle, initial encounter (principal); E03.9 Hypothyroidism, unspecified; E28.2 Polycystic ovarian syndrome; F17.210 Nicotine dependence, cigarettes, uncomplicated; Z79.899 Other long term (current) drug therapy

== ENCOUNTER 2021-04-27 09:33 | Emergency (ER) | payer OTHER | END 2021-04-27 12:34 | disposition home or self-care (01) | LOC: ERS 09:33 | DX: J02.0 Streptococcal pharyngitis (principal); J35.1 Hypertrophy of tonsils; R59.0 Localized enlarged lymph nodes; E03.9 Hypothyroidism, unspecified; E28.2 Polycystic ovarian syndrome; I10 Essential (primary) hypertension; Z87.891 Personal history of nicotine dependence; Z79.899 Other long term (current) drug therapy | CPT/HCPCS: 87430; 99283 ==